=== PATIENT | male | born 1970 | race Caucasian/White ===

== ENCOUNTER 2021-06-29 20:23 | Observation (INO) | payer OTHER, SELFPAY ==
[2021-06-29] VITALS (7 sets, daily range): BP systolic 129–167; BP diastolic 73–102; PULSE 71–90; RESP 20; TEMP 36.5–36.7; O2SAT 95–100; BMI 26.3; BMI 24.9
--- NOTE | 2021-06-29 20:21 | ECG_ITS ---
APPROVED REPORT Exam: Resting ECG HR:90 bpm ECG Measurements Heart Rate 90 AXES MA 166 P 37 QRSd 78 QRS -2 QT 358 T 43 QTc 437 Conclusion Normal sinus rhythm Normal ECG Electronically signed by : Noble Chowdhury MD 06/30/2021 09:39:17
--- NOTE | 2021-06-29 20:31 | XR_ITS ---
PROCEDURE INFORMATION: Exam: XR Chest Exam date and time: 06/29/21 08:31 PM Age: 51 years old Clinical indication: Chest pressure; Patient HX: Chest pain; Additional info: Cp TECHNIQUE: Imaging protocol: XR of the chest. Views: 2 views. COMPARISON: No relevant prior studies available. FINDINGS: Lungs: Unremarkable. No consolidation. Pleural spaces: Unremarkable. No pleural effusion. No pneumothorax. Heart/Mediastinum: Unremarkable. No cardiomegaly. Bones/joints: Unremarkable. IMPRESSION: No acute findings.
[2021-06-29 20:43] LABS: Basophils # 0.1 K/mm3 (0-0.2); Basophils % 0.9 % (0.1-2.0); Eosinophils # 0.1 K/mm3 (0.0-0.4); Eosinophils % 0.9 % (0.1-12.0); Hematocrit 48.6 % (42.0-52.0); Hemoglobin 16.6 g/dL (14.1-18.0); Lymphocytes # 2.1 K/mm3 (0.7-4.5); Lymphocytes % 21.4 % (10-50); Mean Corpuscular HGB Conc 34.3 g/dL (31.8-35.4); Mean Corpuscular Hemoglobin 30.7 pg (27.0-31.2); Mean Corpuscular Volume 89.5 fl (80-94); Mean Platelet Volume 7.3 fl (7.4-10.4); Monocytes # 0.5 K/mm3 (0.1-1.0); Monocytes % 5.3 % (1.7-9.3); Neutrophils # 6.9 K/mm3 (1.8-7.8); Neutrophils % 71.5 % (37.0-80.0); Platelet Count 227 K/mm3 (142-424); Red Blood Count 5.43 M/mm3 (4.60-6.20); Red Cell Distribution Width 13.2 % (11.5-17.5); White Blood Count 9.6 K/mm3 (4.8-10.8)
--- NOTE | 2021-06-29 20:52 | HMH.EDCP ---
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 The time I documented below is in addition to time spent performing reported procedures but includes the following listed in this critical care notation. Medical Decision Making - Medical Records Medical records reviewed: Yes: I reviewed the patient's medical records. - Rodolfo Inquiry Pt receiving controlled substance: No Vital Signs: 06/29/21 20:24 06/29/21 20:29 06/29/21 21:00 Temperature 98.1 F Temperature Source Oral Pulse Rate 85 78 Pulse Rate [Right] 90 Respiratory Rate 20 Blood Pressure 135/87 129/73 Blood Pressure [Right Arm] 167/102 H Blood Pressure Mean 96 86 Blood Pressure Mean [Right Arm] 123 02 Sat by Pulse Oximetry 96 95 95 06/29/21 22:00 06/29/21 22:30 Temperature Temperature Source Pulse Rate 71 79 Pulse Rate [Right] Respiratory Rate Blood Pressure 134/82 150/89 H Blood Pressure [Right Arm] Blood Pressure Mean 96 109 Blood Pressure Mean [Right Arm] 02 Sat by Pulse Oximetry 99 100 - Lab Data Lab results reviewed: Yes: I reviewed the patient's lab results. Lab Results 06/29/21 20:00: Hemoglobin A1c 10.6 H 06/29/21 20:00: Acetone Level None detected 06/29/21 20:20: WBC 9.6, RBC 5.43, Hgb 16.6, Hct 48.6, MCV 89.5, MCH 30.7, MCHC 34.3, RDW 13.2, Plt Count 227, MPV 7.3 L, Neut % (Auto) 71.5, Lymph % (Auto) 21.4, [place] % (Auto) 5.3, Eos % (Auto) 0.9, Baso % (Auto) 0.9, Neut # (Auto) 6.9, Lymph # (Auto) 2.1, [place] # (Auto) 0.5, Eos # (Auto) 0.1, Baso # (Auto) 0.1, ESR 16 06/29/21 20:20: Sodium 140, Potassium 3.9, Chloride 103, Carbon Dioxide 28, Anion Gap 12.9, BUN 19, Creatinine 0.80, Estimated Creat Clear 144, Estimated GFR 102, Est GFR ( Amer) 123, Glucose 307 H, Calcium 9.2, Total Bilirubin 0.7, AST 25, ALT 30, Alkaline Phosphatase 142 H, Troponin I < 0.01, C-Reactive Protein 3.3, Total Protein 7.6, Albumin 4.3, Globulin 3.3 H, Albumin/Globulin Ratio 1.3, Procalcitonin 0.075 Result diagrams: 06/29/21 20:20 06/29/21 20:20 Orders (Tests/Meds): ED MEDICATIONS Generic Name Dose Route Start Last Admin Trade Name Freq PRN Reason Stop Dose Admin Sodium Chloride 1,000 mls @ 999 mls/hr 06/29/21 20:45 06/29/21 20:36 Sod Chlor 0.9% 1000ml Bag IV 06/29/21 21:45 999 mls/hr .Q1H1M TODD Administration Nitroglycerin 0.4 mg 06/29/21 20:32 06/29/21 20:36 Nitroglycerin 0.4mg Sl Tablet SL 07/29/21 20:31 0.4 mg Q5MINP PRN Administration Chest Pain Discontinued Medications Generic Name Dose Route Start Last Admin Trade Name Freq PRN Reason Stop Dose Admin Aspirin 324 mg 06/29/21 20:32 06/29/21 20:36 Aspirin 81mg Chewable Tablet PO 06/29/21 20:33 324 mg ONCE ONE Administration Nitroglycerin 1 gm 06/29/21 22:36 06/29/21 22:37 Nitroglycerin 1 Gm Ointment TD 06/29/21 22:37 1 gm ONCE ONE Administration ORDERS Category Date Time Status Rapid PCR Covid and Flu A/B Stat Lab 06/29/21 22:30 Received Troponin I Q3H Lab 06/29/21 23:45 Ordered Troponin I Q3H Lab 06/30/21 02:45 Ordered - Radiology Data #1 Image(s): Chest Image Reviewed: Yes I have reviewed radiologist's interpretation Preliminary Findings: Normal/NAD - ECG D
[2021-06-29 21:01] LABS: Alanine Aminotransferase 30 U/L (12-78); Albumin Level 4.3 g/dl (3.5-5.0); Albumin/Globulin Ratio 1.3 (1.1-1.8); Alkaline Phosphatase 142 U/L (38-126); Anion Gap 12.9 mEq/L (5-15); Aspartate Amino Transferase 25 U/L (17-59); Bilirubin,Total 0.7 mg/dl (0.2-1.3); Blood Urea Nitrogen 19 mg/dl (9-20); Calcium 9.2 mg/dl (8.4-10.2); Carbon Dioxide 28 mmol/L (22.0-30.0); Chloride 103 mmol/L (98-107); Creatinine Clearance Estimated 144 mL/min (50-200); Estimated Glomerular Filt Rate 102 ml/min (>60); GFR (African American) 123 ML/MIN (>60); Globulin 3.3 g/dL (1.3-3.2); Glucose 307 mg/dl (74-100); Potassium 3.9 mmoL/L (3.5-5.1); Sodium 140 mmol/L (136-145); Total Protein,Serum 7.6 g/dl (6.3-8.2)
[2021-06-29 21:06] LABS: C-Reactive Protein 3.3 mg/L (0-4)
[2021-06-29 21:19] LABS: Erythrocyte Sedimentation Rate 16 mm/hr (0-20); Procalcitonin 0.075 ng/mL (0.0-2.0); Troponin I < 0.01 ng/ml (0.00-0.034)
[2021-06-29 21:26] LABS: Acetone, Serum (Rapid) None Detected (None Detect)
--- NOTE | 2021-06-29 21:27 | PC.NURSE ---
Pt to x-ray
[2021-06-29 21:33] LABS: Hemoglobin A1C 10.6 % (4.0-6.0)
--- NOTE | 2021-06-29 21:34 | PC.NURSE ---
Pt returned from X-ray
[2021-06-29 22:39] LABS: Coronavirus 19, PCR Not Detected (NotDetected); Influenza A, PCR Not Detected (NotDetected); Influenza B, PCR Not Detected (NotDetected)
--- NOTE | 2021-06-29 22:54 | PC.NURSE ---
contacted [facility] in [place] to try obtained medical records
--- NOTE | 2021-06-29 23:20 | PC.NURSE ---
patient up to floor via wheelchair
[2021-06-29 23:53] LABS: Troponin I < 0.01 ng/ml (0.00-0.034)
[2021-06-30] VITALS (9 sets, daily range): BP systolic 107–122; BP diastolic 55–75; PULSE 59–72; RESP 16–20; TEMP 36.6–36.9; O2SAT 95–98; BMI 24.9
[2021-06-30 03:06] LABS: Troponin I < 0.01 ng/ml (0.00-0.034)
--- NOTE | 2021-06-30 03:15 | PC.NURSE ---
A&OX4. TOLERATING RA WELL. PT HAS HAD NO C/O PAIN, SOA, SINCE ARRIVAL TO FLOOR. PT UP INDEPENDENTLY IN ROOM. HAS A GREAT APPETITE. NSR ON TELE. VSS WILL CONTINUE TO MONITOR.
[2021-06-30 05:10] LABS: POC Glucose,Bedside 191 (70-110)
[2021-06-30 06:07] LABS: Eosinophils # 0.1 K/mm3 (0.0-0.4); Monocytes # 0.5 K/mm3 (0.1-1.0); Red Cell Distribution Width 13.1 % (11.5-17.5)
[2021-06-30 06:17] LABS: Basophils # 0.1 K/mm3 (0-0.2); Basophils % 0.6 % (0.1-2.0); Chloride 109 mmol/L (98-107); Eosinophils % 1.5 % (0.1-12.0); Hematocrit 40.6 % (42.0-52.0); Lymphocytes % 37.3 % (10-50); Mean Corpuscular HGB Conc 34.1 g/dL (31.8-35.4); Mean Corpuscular Hemoglobin 30.6 pg (27.0-31.2); Mean Corpuscular Volume 89.7 fl (80-94); Mean Platelet Volume 7.9 fl (7.4-10.4); Monocytes % 6.7 % (1.7-9.3); Neutrophils # 4.3 K/mm3 (1.8-7.8); Neutrophils % 53.9 % (37.0-80.0); Platelet Count 188 K/mm3 (142-424); Red Blood Count 4.52 M/mm3 (4.60-6.20)
[2021-06-30 06:18] LABS: Potassium 3.6 mmoL/L (3.5-5.1); Sodium 139 mmol/L (136-145)
[2021-06-30 06:20] LABS: Blood Urea Nitrogen 17 mg/dl (9-20); Creatinine Clearance Estimated 181 mL/min (50-200); Estimated Glomerular Filt Rate 142 ml/min (>60); GFR (African American) 172 ML/MIN (>60)
[2021-06-30 06:21] LABS: Anion Gap 8.6 mEq/L (5-15); Calcium 8.2 mg/dl (8.4-10.2); Carbon Dioxide 25 mmol/L (22.0-30.0); Chol/HDL Ratio 6.1 (1-3.5); Cholesterol 177 mg/dl (140-200); Glucose 203 mg/dl (74-100); HDL Cholesterol 29 mg/dl (40-60); Magnesium 1.7 mg/dl (1.6-2.3); Triglycerides 147 mg/dl (30-150); VLDL Cholesterol 29 mg/dL (0-40)
[2021-06-30 06:32] LABS: Direct LDL Cholesterol 119.65 mg/dL (100-129)
[2021-06-30 06:46] LABS: Hemoglobin 13.8 g/dL (14.1-18.0)
--- NOTE | 2021-06-30 08:08 | P.CONPHA_ITS ---
[facility] Pharmacy VTE Monitoring - Patient Demographics Admission date: 06/29/21 Report Date: 06/30/21 Time: 08:08 Allergies/Adverse Reactions: Patient Allergies Penicillins Allergy (Verified 06/29/21 20:31) Height: 1.88 m Weight: 87.997 kg Patient Problems: Current Active Problems Chest pain (Acute) Diabetes mellitus (Acute) Tobacco use (Acute) - VTE Risk Labs: VTE Related Lab Results Hgb 13.8 g/dL (14.1-18.0) L D 06/30/21 05:06 Hct 40.6 % (42.0-52.0) L 06/30/21 05:06 Plt Count 188 K/mm3 (142-424) 06/30/21 05:06 BUN 17 mg/dl (9-20) 06/30/21 05:06 Creatinine 0.60 mg/dl (0.66-1.25) L D 06/30/21 05:06 Estimated Creat Clear 181 mL/min (50-200) 06/30/21 05:06 - Prophylaxis VTE Prophylaxis Ordered?: Yes Types of VTE Prophylaxis: TEDS Knee High Location of Applied Device: Bilateral Lower Extremeties
--- NOTE | 2021-06-30 08:54 | HMH.HP ---
*Admission Date: 06/29/21 *Chief complaint: Chest pain *History of present illness: 51 Y.O. wm admitted with mild chest pain which started yesterday. Pain was nonexertional. It bothered him enough to come the emergency room last night. He was admitted for further evaluation. He has no prior history of cardiac disease. He does not have a family history of cardiac disease. His mother of cancer his father of unknown causes. Patient is a longtime smoker smoking a pack cigarettes a day. During the time he was having chest pain he did not experience nausea or vomiting or diaphoresis. He is not short of breath. This morning he is having some recurrent discomfort in the left chest while he is lying in bed. He has eaten breakfast. He denies any GI problems. He has no history of gallbladder disease or ulcer disease. [facility] History Medical History: Reports:: Diabetes Mellitus Type 2 *Have you ever received a pneumonia vaccine?: No *Have you received a flu vaccine this season?: No - *Social History Smoking Status: Current every day smoker Tobacco Type: cigarettes # Packs/Day (cigarettes): 1 Alcohol Intake: never *Occupational Status:: unemployed *Travel in the last 8 weeks: None Family Hx:: Cancer Review of Systems - Constitutional Denies body ache(s), Denies chills - Eyes Denies change in vision - ENT Denies abnormal hearing, Denies change in voice - *Cardiovascular Reports chest pain, Reports chest pain at rest, Denies chest pain with activity, Denies shortness of breath when lying down, Denies rapid, pounding, or irregular heartbeat - *Respiratory Denies change in phlegm color, Denies chest congestion, Denies cough - *Gastrointestinal Denies abdominal pain, Denies belching, Denies bloating, Denies change in bowel habits - *Genitourinary Denies difficulty urinating - *Musculoskeletal Denies joint pain - Integumentary/Breasts Denies bleeding lesions - *Neurologic Denies abnormal movements, Denies dizziness, Denies localized weakness, Denies seizure-like activity - Psychiatric Denies abnormal sleep pattern - Endocrine Denies cold intolerance, Denies excessive sweating - Hematologic/Lymphatic Denies easy bleeding - Allergic/Immunologic Denies GI upset with certain foods Meds Home Medications Medication Instructions Recorded Confirmed Type glipiZIDE [Glucotrol 5mg tablet] 5 mg PO DAILY 06/29/21 06/29/21 History Allergies Allergy/AdvReac Type Severity Reaction Status Date / Time Penicillins Allergy Verified 06/29/21 20:31 Exam Vital signs and Labs for Last 24 Hours: Temp Pulse Resp BP Pulse Ox 97.9 F 61 20 116/59 L 95 06/30/21 04:16 06/30/21 04:16 06/30/21 04:16 06/30/21 04:16 06/30/21 04:16 Laboratory Results - last 24 hr 06/29/21 20:00: Hemoglobin A1c 10.6 H 06/29/21 20:00: Acetone Level None detected 06/29/21 20:20: WBC 9.6, RBC 5.43, Hgb 16.6, Hct 48.6, MCV 89.5, MCH 30.7, MCHC 34.3, RDW 13.2, Plt Count 227, MPV 7.3 L, Neut % (Auto) 71.5, Lymph % (Auto) 21.4, [place] % (Auto) 5.3, Eos % (Auto) 0.9, Baso % (Auto) 0.9, Neut # (Auto) 6.9, Lymph # (Auto) 2.1, [place] # (Auto) 0.5, Eos # (Auto) 0.1, Baso # (Auto) 0.1, ESR 16 06/29/21 20:20: Sodium 140, Potassium 3.9, Chloride 103, Carbon Dioxide 28, Anion Gap 12.9, BUN 19, Creatinine 0.80, Estimated Creat Clear 144, Estimated GFR 102, Est GFR ( Amer) 123, Glucose 307 H, Calcium 9.2, Total Bilirubin 0.7, AST 25, ALT 30, Alkaline Phosphatase 142 H, Troponin I < 0.01, C-Reactive Protein 3.3, Total Protein 7.6, Albumin 4.3, Globulin 3.3 H, Albumin/Globulin Ratio 1.3, Procalcitonin 0.075 06/29/21 22:30: SARS-CoV-2 (PCR) Not detected, Influenza A Untype (PCR) Not detected, Influenza Type B (PCR) Not detected 06/29/21 23:15: Troponin I < 0.01 06/30/21 02:38: Troponin I < 0.01 06/30/21 05:03: POC Glucose 191 H 06/30/21 05:06: WBC 8.0, RBC 4.52 L, Hgb 13.8 L D, Hct 40.6 L, MCV 89.7, MCH 30.6, MCHC 34.1, RDW 13.1, Plt Coun
--- NOTE | 2021-06-30 10:40 | HMH.PHAINT ---
MEDICATION RECONCILIATION COMPLETED ON PATIENT BY CALLING [facility]. -FRANCI RIVERA, PHARMD
[2021-06-30 12:33] LABS: POC Glucose,Bedside 222 (70-110)
[2021-06-30 15:27] LABS: Hemoglobin A1C 10.2 % (4.0-6.0)
[2021-06-30 16:38] LABS: POC Glucose,Bedside 178 (70-110)
[2021-06-30 22:10] LABS: POC Glucose,Bedside 192 (70-110)
[2021-07-01] VITALS (7 sets, daily range): BP systolic 119–146; BP diastolic 65–85; PULSE 56–72; RESP 16–22; TEMP 36.2–36.9; O2SAT 96–99; BMI 26.2
--- NOTE | 2021-07-01 03:33 | PC.NURSE ---
No acute changes overnight. A&O. No c/o of pain or discomfort. On room air, lungs CTA. NSR on tele. IV patent. VSS, call light in reach, no concerns at this time.
--- NOTE | 2021-07-01 09:41 | P.PN_ITS ---
Internal Medicine - PN: Subj *Date: 07/01/21 *Time: 09:41 Interval history: He is doing just fine. He is comfortable. He does not have significant chest pain though he does admit some discomfort in the chest area. He is tolerating the nitroglycerin. His blood pressure has improved with the carvedilol. Exam Vital signs and Labs for Last 24 Hours: Temp Pulse Resp BP Pulse Ox 98.0 F 60 20 125/65 99 07/01/21 08:00 07/01/21 08:00 07/01/21 08:00 07/01/21 08:00 07/01/21 08:00 Laboratory Results - last 24 hr 06/30/21 05:06: Hemoglobin A1c 10.2 H 06/30/21 12:11: POC Glucose 222 H 06/30/21 15:59: POC Glucose 178 H 06/30/21 21:57: POC Glucose 192 H I & O for Last 24 hours: Intake & Output 06/28/21 06/29/21 06/30/21 07/01/21 11:59 11:59 11:59 11:59 Intake Total 1340 / 1340 1440 / 1440 Output Total 325 / 325 600 / 600 Balance 1015 / 1015 840 / 840 Weight 194 lb 204 lb 9 oz - Constitutional no acute distress - *Routine HEENT Exam Eye: Present: PERRL ENT: Present: mucous membranes moist - *Routine Neck Exam Absent: JVD - Routine Chest/Breast/Axilla Exam Chest wall: Absent: tenderness - *Routine Respiratory Exam Present: decreased breath sounds, rales (Few bibasilar) - *Routine Cardiovascular Exam Present: RRR - *Routine Abdominal Exam Present: soft, normoactive bowel sounds. Absent: tenderness - *Routine Extremities Exam Absent: edema - *Routine Skin Exam Present: intact, warm. 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 N.p.o. after midnight pending cardiology evaluation. Lab work in the morning.
--- NOTE | 2021-07-01 15:47 | PC.NURSE ---
Pt has done well this shift, pt has had no c/o chest pain this shift. Pt has refused nitro administration this shift. Pt has ambulated in the hallway multiple times this shift w/ satisfactory gait and balance. Lung sounds CTA. No other acute changes or complaints at this time, will continue to monitor.
[2021-07-01 22:53] LABS: POC Glucose,Bedside 294 (70-110)
[2021-07-02] VITALS (8 sets, daily range): BP systolic 114–136; BP diastolic 63–76; PULSE 50–70; RESP 15–18; TEMP 36.4–36.9; O2SAT 93–100; BMI 25.9; BMI 26.0
[2021-07-02 01:44] LABS: POC Glucose,Bedside 217 (70-110)
--- NOTE | 2021-07-02 04:58 | PC.NURSE ---
Pt. has not c/o soa, cp, pain, n/v/d or dizziness this shift. Sinus solange and nsr on concrete smoother.
[2021-07-02 05:59] LABS: POC Glucose,Bedside 220 (70-110)
[2021-07-02 07:37] LABS: Basophils # 0.1 K/mm3 (0-0.2); Basophils % 0.7 % (0.1-2.0); Eosinophils # 0.1 K/mm3 (0.0-0.4); Eosinophils % 1.2 % (0.1-12.0); Hematocrit 42.1 % (42.0-52.0); Hemoglobin 14.3 g/dL (14.1-18.0); Lymphocytes # 2.4 K/mm3 (0.7-4.5); Lymphocytes % 31.5 % (10-50); Mean Corpuscular HGB Conc 33.9 g/dL (31.8-35.4); Mean Corpuscular Hemoglobin 31.3 pg (27.0-31.2); Mean Corpuscular Volume 92.5 fl (80-94); Mean Platelet Volume 8.2 fl (7.4-10.4); Monocytes # 0.5 K/mm3 (0.1-1.0); Monocytes % 6.1 % (1.7-9.3); Neutrophils # 4.6 K/mm3 (1.8-7.8); Neutrophils % 60.5 % (37.0-80.0); Platelet Count 191 K/mm3 (142-424); Red Blood Count 4.55 M/mm3 (4.60-6.20); Red Cell Distribution Width 12.9 % (11.5-17.5); White Blood Count 7.7 K/mm3 (4.8-10.8)
[2021-07-02 07:38] LABS: Chloride 108 mmol/L (98-107); Potassium 3.9 mmoL/L (3.5-5.1); Sodium 136 mmol/L (136-145)
[2021-07-02 07:41] LABS: Anion Gap 5.9 mEq/L (5-15); Blood Urea Nitrogen 15 mg/dl (9-20); Calcium 8.3 mg/dl (8.4-10.2); Carbon Dioxide 26 mmol/L (22.0-30.0); Creatinine Clearance Estimated 189 mL/min (50-200); Estimated Glomerular Filt Rate 142 ml/min (>60); GFR (African American) 172 ML/MIN (>60); Glucose 204 mg/dl (74-100)
--- NOTE | 2021-07-02 08:10 | P.PN_ITS ---
Internal Medicine - PN: Subj *Date: 07/02/21 *Time: 08:10 Interval history: Patient states he slept okay. He does have periodic anterior across the lower chest discomfort. He denies shortness of breath. He is eating without problems. He ambulates without discomfort. He is actually ambulated in the garcia. He is voiding QS and bowels have moved. Lab data this a.m. shows sodium of 136 potassium of 3.9. Renal function is normal. CBC with a white blood cell count of 7700 and a hemoglobin of 14.3 and hematocrit 42.1. Exam Vital signs and Labs for Last 24 Hours: Temp Pulse Resp BP Pulse Ox 97.5 F L 60 16 124/63 93 L 07/02/21 03:40 07/02/21 04:00 07/02/21 03:40 07/02/21 03:40 07/02/21 03:40 Laboratory Results - last 24 hr 07/01/21 17:00: POC Glucose 217 H 07/01/21 21:00: POC Glucose 294 H 07/02/21 05:35: POC Glucose 220 H 07/02/21 07:07: WBC 7.7, RBC 4.55 L, Hgb 14.3, Hct 42.1, MCV 92.5, MCH 31.3 H, MCHC 33.9, RDW 12.9, Plt Count 191, MPV 8.2, Neut % (Auto) 60.5, Lymph % (Auto) 31.5, [place] % (Auto) 6.1, Eos % (Auto) 1.2, Baso % (Auto) 0.7, Neut # (Auto) 4.6, Lymph # (Auto) 2.4, [place] # (Auto) 0.5, Eos # (Auto) 0.1, Baso # (Auto) 0.1 07/02/21 07:07: Sodium 136, Potassium 3.9, Chloride 108 H, Carbon Dioxide 26, Anion Gap 5.9, BUN 15, Creatinine 0.60 L, Estimated Creat Clear 189, Estimated GFR 142, Est GFR ( Amer) 172, Glucose 204 H, Calcium 8.3 L I & O for Last 24 hours: Intake & Output 06/29/21 06/30/21 07/01/21 07/02/21 11:59 11:59 11:59 11:59 Intake Total 1340 / 1340 1440 / 1440 720 / 720 Output Total 325 / 325 600 / 600 Balance 1015 / 1015 840 / 840 720 / 720 Weight 194 lb 204 lb 9 oz 202 lb 3 oz - Constitutional no acute distress - *Routine Respiratory Exam Present: CTA bilaterally (Anteriorly and posteriorly) - *Routine Cardiovascular Exam Present: RRR - *Routine Abdominal Exam Present: soft, normoactive bowel sounds. 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
--- NOTE | 2021-07-02 09:40 | HMH.CNCARD ---
History of Present Illness Consult date: 07/02/21 Requesting physician: Jeanne Lizama Consult reason: chest pain Chief complaint: chest pain Additional Medical History:: 1. Diabetes mellitus, treated for about 3 years A. Hemoglobin A1c 10.6, 06/2021 2. Tobacco use 1 pack/day for greater than 30 years 3. History of left heart catheterization in 2019 at in [place], [place] with reported less than 20% stenosis. No need for any intervention. Per patient. 4. Father at age 61 from some sort of heart related illness 5. Hypertension, newly diagnosed this admission 06/2021 6. History of torn rotator cuff of the left shoulder after falling out of a tree History of present illness: 51-year-old white male with history of diabetes and tobacco use presented to the emergency department due to sticking type chest pain in the lower chest, upper abdominal areas with associated flushing sensation. Symptoms occurred at rest without nausea, vomiting or diaphoresis. No acute shortness of breath was noted. Patient came to the emergency department for further evaluation. He was subsequently admitted for observation. Troponins have returned normal x3 and EKG showed no acute ST segment changes. He was in sinus rhythm. Patient was noted to be hypertensive on admission and was started on carvedilol with improvement in blood pressure. Due to recurrent chest discomfort he was also started on nitroglycerin paste which he states has helped with the discomfort. He reports being hospitalized in [place] last year for similar chest discomfort at which time he underwent left heart catheterization with only mild coronary artery disease noted and no need for intervention. He relates being on Prilosec for 30 days with resolution of symptoms at that time. He does drink several sodas per day. 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 [facility] History Medical History: Reports:: Diabetes Mellitus Type 2 *Have you ever received a pneumonia vaccine?: No *Have you received a flu vaccine this season?: No - *Social History Smoking Status: Current every day smoker Tobacco Type: cigarettes # Packs/Day (cigarettes): 1 Alcohol Intake: never *Occupational Status:: unemployed *Travel in the last 8 weeks: None Family Hx:: Cancer Meds Home Medications Medication Instructions Recorded Confirmed Type glipiZIDE [Glucotrol 5mg tablet] 5 mg PO DAILY 06/29/21 06/29/21 History Allergies Allergy/AdvReac Type Severity Reaction Status Date / Time Penicillins Allergy Verified 06/29/21 20:31 Exam Vital signs and Labs for Last 24 Hours: Temp Pulse Resp BP Pulse Ox 97.9 F 66 16 136/75 98 07/02/21 08:00 07/02/21 08:00 07/02/21 08:00 07/02/21 08:00 07/02/21 08:00 Laboratory Results - last 24 hr 07/01/21 17:00: POC Glucose 217 H 07/01/21 21:00: POC Glucose 294 H 07/02/21 05:35: POC Glucose 220 H 07/02/21 07:07: WBC 7.7, RBC 4.55 L, Hgb 14.3, Hct 42.1, MCV 92.5, MCH 31.3 H, MCHC 33.9, RDW 12.9, Plt Count 191, MPV 8.2, Neut % (Auto) 60.5, Lymph % (Auto) 31.5, [place] % (Auto) 6.1, Eos % (Auto) 1.2, Baso % (Auto) 0.7, Neut # (Auto) 4.6, Lymph # (Auto) 2.4, [place] # (Auto) 0.5, Eos # (Auto) 0.1, Baso # (Auto) 0.1 07/02/21 07:07: Sodium 136, Potassium 3.9, Chloride 108 H, Carbon Dioxide 26, Anion Gap 5.9, BUN 15, Creatinine 0.60 L, Estimated Creat Clear 189, Estimated GFR 142, Est GFR ( Amer) 172, Glucose 204 H, Calcium 8.3 L I & O for Last 24 hours: Intake & Output 06/29/21 06/30/21 07/01/21 07/02/21 11:59 11:59 11:59 11:59 Intake Total 1340 / 1340 1440 / 1440 720 / 720 Output Total 325 / 325 600 / 600 Balance 1015 / 1015 840 / 840 720 / 720 Weight 194 lb 204 lb 9 oz 202 lb 3 oz - Constitutional no acute distress - *Routine HEENT Exam Head: Present: normocephalic Eye: Present: EOMI, PERRL ENT: Present: mucous membranes moist - *Routine Neck Exam Present: supple. Absent: lym
--- NOTE | 2021-07-02 10:21 | NM_ITS ---
APPROVED REPORT Exam: Nuclear Stress Test Indication: chest pain Patient Location: Outpatient Stress Tech: Viviana Gonzalez [place] Tech:EPI Jose, RT (R)(N) Ht: 6 ft 2 in Wt: 194 lbs HR: 74 bpm BP: 142/85 mmHg BSA: 2.15 m2 BMI: 24.9 History: chest pain Procedure: Patient received a 0.4 mg of intravenous Lexiscan, resting heart rate 74 bpm, resting blood pressure 142/85 mmHg, with Lexiscan maximum heart rate achived was 140 bpm which is 85 % of the maximum predicted heart rate and blood pressure was 150/94 mmHg. With Lexiscan, patient denied any complaint of chest pain. Cardiac Stress and Resting SPECT Images: Cardiac Stress and Resting SPECT images were obtained using technetium 99m Myoview 32.2 mCi stress and 10.83 mCi at rest. EF is low at 43 % with apical and anterior hypokiesia No fixed or reversible defects Conclusion: EF is low at 43 % with apical and anterior hypokiesia No fixed or reversible defects Electronically signed by : Familia Howe MD 07/02/2021 16:05:24
--- NOTE | 2021-07-02 10:21 | CA_ITS ---
APPROVED REPORT Exam: Exercise Treadmill Technologist: Viviana Gonzalez, Ht: 5 ft 10 in Wt: 201 lbs BSA: 2.09 m2 HR: 70 bpm BP: 142/87 mmHg Medical History Medications: Aspirin,,,,, Glipizide,,,,, Stress Test Details Test: David HR Resting HR: 74 bpm Max Heart Rate (APMHR): 169.558528 bpm Max HR Achieved: 140 bpm Target HR (85% APMHR): 143.674417 bpm % of APMHR: 82.84 Recovery HR: 84 bpm BP Resting BP: 142/85 mmHg Max BP: 150/94 mmHg Recovery BP: 160.0/82.0 mmHg ECG Resting ECG: NSR Clinical Reason for Termination: Dyspnea Leg Pain Exercise duration: 07:53 min Highest Stage Achieved: Exercise capacity: 10.1 METs Stress ECG Conclusion Exercised 7:53 mins Max HR: 140 % of PM: 97 Max BP: 150/94 METs: 10.1 Test stopped due to: leg pain, SOA Symptoms: No CP Arrhythmias/Ectopy: Rare PVC's ST-T Changes: <1.[address] Segment changes. Conclusion: Negative stress test. Did not reach target HR but negative test. Test Summary RECOVERY 01:00 0.0 0.0 110 . . . Stop exercise at 07:53 REST . . . . . . . Standing REST 08:18 0.0 1.2 74 . 142/ 85 . . Stage 1 01:00 10.0 1.7 89 . . . . Stage 1 02:00 10.0 1.7 90 . 140/ 84 . . Stage 1 03:00 10.0 1.7 93 . 140/ 84 . . Stage 2 01:00 12.0 2.5 101 . . . . Stage 2 02:00 12.0 2.5 108 . . . . Stage 2 03:00 12.0 2.5 113 . 150/ 94 . . Stage 3 01:00 14.0 3.4 128 . . . . Stage 3 01:53 14.0 3.4 138 . . . Stop exercise at 07:53 RECOVERY 01:00 0.0 0.0 110 . . . . RECOVERY 02:00 0.0 0.0 87 . . . . RECOVERY 03:00 0.0 0.0 92 . . . . RECOVERY 04:00 0.0 0.0 91 . . . . RECOVERY 05:00 0.0 0.0 85 . . . . RECOVERY 06:00 0.0 0.0 82 . . . . RECOVERY 06:29 0.0 0.0 82 . . . . Electronically signed by : Audie Graham MD 07/02/2021 18:09:34
--- NOTE | 2021-07-02 10:23 | CA_ITS ---
APPROVED REPORT EXAM: Comprehensive 2D, Doppler, and color-flow Echocardiogram Investment Counselor: Aliyah Jaramillo CRT Ht: 6 ft 3 in Wt: 202lbs BSA: 2.20 BP: 136/75 mmHg Indications: Chest Pain, Diabetes, CAD, Hyperlipidemia, Hypertension/HDD, Smoker 2D Dimensions LVOT 1.94 cm (M/F) 1.5-2.5 LA Volume 30.80 mL LA Volume Index 14.00 mL/m2 (M/F) 16-34 M-Mode Dimensions RVDd 3.14 cm (0.9-2.6) LA Diam 3.23 cm (1.9-4.0) LVDd 4.80 cm (3.5-5.7) Ao Diam 4.08 cm (2.0-3.7) LVDs 3.31 cm (3.5-5.7) IVSd 1.31 cm (0.6-1.1) PWd 1.03 cm (0.6-1.1) EF (Teich) 58.60% FS 31.00% EDV (Teich) 107.50 mL TAPSE 1.82 (<1.7) ESV (Teich) 44.50 mL LV Diastology E Decel Time 193.00 (160-240 msec) E/A Ratio 0.87 MED E' 6.80 (< 7 cm/sec) MED A' 6.20 cm/s E'/MED E' Ratio 8.03 (>14) LAT E' 9.50 (<10 cm/sec) LAT A' 9.90 cm/s E/LAT E' Ratio 5.75 (>14) Aortic Valve AO Peak GR. 5.60 mmHg Mitral Valve MV E Max Eric. 55.00 (40-130 cm/s) MV A Velocity 63.00 (40-130 cm/s) E/A Ratio 0.87 MV Decel. Time 193.00 (160-240 ms) MV PHT 57.00 ms Pulmonary Valve PV Peak Velocity 77.00 (50-150 cm/s) Tricuspid Valve TR P. Velocity 146.00 cm/s RAP Estimate 10.00 mmHg RVSP 18.50 mmHg Left Ventricle Left atrium normal size, left ventricle is normal size, there is no concentric left ventricular hypertrophy, visually estimated ejection fraction 55% with no regional wall motion abnormality, diastolic parameters are within normal range. Right Ventricle Right atrium and right ventricle are qualitatively normal size and contractility. Aortic Valve Aortic valve is grossly normal, there is no aortic stenosis or aortic insufficiency. Mitral Valve Mitral valve grossly normal, there is trace mitral regurgitation. Tricuspid Valve Tricuspid grossly normal, there is trace tricuspid regurgitation, tricuspid regurgitation jet velocity is inadequate for calculation of the right ventricular systolic pressure. Pulmonic Valve Pulmonic valve is poorly visualized. Great Vessels Aortic root is normal size. Pericardium No significant pericardial effusion noted. Conclusion 1. Normal left ventricular size, preserved left ventricular systolic function, visually estimated ejection fraction 55% with no regional wall motion abnormality, diastolic parameters are within normal range. 2. Trace mitral and tricuspid regurgitation. 3. No significant pericardial effusion noted. Electronically signed by : Audie Graham MD 07/02/2021 19:12:54
[2021-07-02 12:58] LABS: POC Glucose,Bedside 111 (70-110)
[2021-07-02 20:46] LABS: POC Glucose,Bedside 293 (70-110)
[2021-07-03] VITALS: BP 114/64; PULSE 60; PULSE 61; RESP 16; TEMP 37; O2SAT 97
[2021-07-03 03:39] VITALS: BP 117/70; PULSE 74; RESP 16; TEMP 36.8; O2SAT 97
[2021-07-03 04:00] VITALS: PULSE 60
--- NOTE | 2021-07-03 04:00 | PC.NURSE ---
Patient is a&ox4. no complaints of pain. Patient has been pleasant this shift and voiced no concerns to RN. blood sugar was elevated and insulin sliding scale was administered. VSS.
[2021-07-03 04:53] LABS: POC Glucose,Bedside 341 (70-110)
--- NOTE | 2021-07-03 07:28 | HMH.PNCARD ---
Subjective Date: 07/03/21 Time: 07:28 Principal diagnosis: Chest pain Interval history: 51-year-old white male in bed in no acute distress. No complaints overnight. Chest discomfort has resolved. Stress test showed no evidence of ischemia or scar. Echocardiogram showed normal ejection fraction with no significant valvular heart disease. The ejection fraction on the stress test appears to be falsely low compared to the echocardiogram EF which is normal. Exam Vital signs and Labs for Last 24 Hours: Temp Pulse Resp BP Pulse Ox 98.3 F 60 16 117/70 97 07/03/21 03:39 07/03/21 04:00 07/03/21 03:39 07/03/21 03:39 07/03/21 03:39 Laboratory Results - last 24 hr 07/02/21 07:07: WBC 7.7, RBC 4.55 L, Hgb 14.3, Hct 42.1, MCV 92.5, MCH 31.3 H, MCHC 33.9, RDW 12.9, Plt Count 191, MPV 8.2, Neut % (Auto) 60.5, Lymph % (Auto) 31.5, Becker % (Auto) 6.1, Eos % (Auto) 1.2, Baso % (Auto) 0.7, Neut # (Auto) 4.6, Lymph # (Auto) 2.4, Becker # (Auto) 0.5, Eos # (Auto) 0.1, Baso # (Auto) 0.1 07/02/21 07:07: Sodium 136, Potassium 3.9, Chloride 108 H, Carbon Dioxide 26, Anion Gap 5.9, BUN 15, Creatinine 0.60 L, Estimated Creat Clear 189, Estimated GFR 142, Est GFR ( Amer) 172, Glucose 204 H, Calcium 8.3 L 07/02/21 11:48: POC Glucose 111 H 07/02/21 20:39: POC Glucose 293 H 07/03/21 04:46: POC Glucose 341 H* I & O for Last 24 hours: Intake & Output 06/30/21 07/01/21 07/02/21 07/03/21 11:59 11:59 11:59 11:59 Intake Total 1340 / 1340 1440 / 1440 720 / 720 Output Total 325 / 325 600 / 600 Balance 1015 / 1015 840 / 840 720 / 720 Weight 194 lb 204 lb 9 oz 202 lb 3 oz 202 lb 13.204 oz - Constitutional no acute distress - *Routine HEENT Exam Head: Present: normocephalic Eye: Present: EOMI, PERRL ENT: Present: mucous membranes moist - *Routine Neck Exam Present: supple. Absent: lymphadenopathy - *Routine Respiratory Exam Present: CTA bilaterally - *Routine Cardiovascular Exam Present: RRR - *Routine Abdominal Exam Present: soft, normoactive bowel sounds. Absent: tenderness - *Routine Extremities Exam Absent: cyanosis, clubbing, edema - *Routine Skin Exam Present: warm. Absent: rash - *Routine Neurological Exam Present: alert, oriented X3 Progress Note: A&P (1) Chest pain Status: Acute (2) Diabetes mellitus Status: Acute (3) Tobacco use Status: Acute (4) Hypertension Status: Acute Assessment and Plan for All Diagnoses:: Okay from cardiology standpoint for discharge home. Home medication recommendations Aspirin 81 mg daily Coreg 6.25 mg twice daily Atorvastatin 40 mg daily Pantoprazole 40 mg daily Nitroglycerin sublingual 0.4 mg as needed Follow-up in our office in 2 weeks.
[2021-07-03 08:00] VITALS: BP 131/67; PULSE 70; PULSE 79; RESP 18; TEMP 36.8; O2SAT 97
--- NOTE | 2021-07-03 08:25 | P.PN_ITS ---
Internal Medicine - PN: Subj *Date: 07/03/21 *Time: 08:25 Interval history: Patient is ready to go home. He denies any further chest pain or shortness of breath. He states he is eating without difficulties. He ambulates without problems. Exam Vital signs and Labs for Last 24 Hours: Temp Pulse Resp BP Pulse Ox 98.3 F 79 18 131/67 97 07/03/21 08:00 07/03/21 08:00 07/03/21 08:00 07/03/21 08:00 07/03/21 08:00 Laboratory Results - last 24 hr 07/02/21 11:48: POC Glucose 111 H 07/02/21 20:39: POC Glucose 293 H 07/03/21 04:46: POC Glucose 341 H* I & O for Last 24 hours: Intake & Output 06/30/21 07/01/21 07/02/21 07/03/21 11:59 11:59 11:59 11:59 Intake Total 1340 / 1340 1440 / 1440 720 / 720 480 / 480 Output Total 325 / 325 600 / 600 Balance 1015 / 1015 840 / 840 720 / 720 480 / 480 Weight 194 lb 204 lb 9 oz 202 lb 3 oz 202 lb 13.204 oz - Constitutional no acute distress - *Routine Respiratory Exam Present: CTA bilaterally (Anteriorly and posteriorly) - *Routine Cardiovascular Exam Present: RRR - *Routine Abdominal Exam Present: soft, normoactive bowel sounds. Absent: tenderness - *Routine Extremities Exam Absent: edema, calf tenderness - *Routine Neurological Exam Present: alert, oriented X3 Assessment and Plan (1) Chest pain Status: Acute Qualifiers: Chest pain type: precordial pain Qualified Code(s): R07.2 - Precordial pain Category: Medical Code(s): R07.9 - Chest pain, unspecified (2) Diabetes mellitus Status: Acute Qualifiers: Diabetes mellitus type: type 2 Diabetes mellitus usp insulin use: unspecified usp insulin use status Diabetes mellitus complication status: with other specified complication Qualified Code(s): E11.69 - Type 2 diabetes mellitus with other specified complication Category: Medical Code(s): E11.9 - Type 2 diabetes mellitus without c omplications (3) Tobacco use Status: Acute Category: Social Hx Code(s): Z72.0 - Tobacco use (4) Hypertension Status: Acute Category: Medical Code(s): I10 - Essential (primary) hypertension - Assessment and plan all Dx Assessment and Plan for all problems:: Patient has been seen by cardiology and cleared for discharge. Patient will also be seen by Dr. Lizama. Home medications will include aspirin 81 mg daily, Coreg 6.25 mg twice daily, atorvastatin 40 mg daily, Protonix 40 mg daily, and NTG 0.4 mg as needed. He will have a follow-up in the office of cardiology in 2 weeks..
--- NOTE | 2021-07-03 15:55 | HMH.DCSUM ---
General - General Admission date:: 06/29/21 Discharge date: 07/03/21 HPI HPI: 51 Y.O. wm admitted with mild chest pain which started yesterday. Pain was nonexertional. It bothered him enough to come the emergency room last night. He was admitted for further evaluation. He has no prior history of cardiac disease. He does not have a family history of cardiac disease. His mother of cancer his father of unknown causes. Patient is a longtime smoker smoking a pack cigarettes a day. During the time he was having chest pain he did not experience nausea or vomiting or diaphoresis. He is not short of breath. This morning he is having some recurrent discomfort in the left chest while he is lying in bed. He has eaten breakfast. He denies any GI problems. He has no history of gallbladder disease or ulcer disease. Hospital Course Hospital Course: The patient was started on Nitropaste due to his chest pain and mild blood pressure elevation. Pantoprazole was also added for possible gastrointestinal cause. His chest x-ray showed nothing acute. His blood pressure improved with carvedilol and he tolerated the nitroglycerin and had less chest pain. Cardiology was consulted and they recommended a stress test and an echo. The patient's echo showed a normal ejection fraction with no significant valvular disease. Ejection fraction on stress test appear to be falsely low compared to the echo EF which was normal. Stress test showed no evidence of ischemia. Cardiology felt the patient could be discharged home on aspirin, Coreg, atorvastatin, pantoprazole, and sublingual nitroglycerin. He will follow-up in their office in 2 weeks. Objective Vital signs: Temp Pulse Resp BP Pulse Ox 98.3 F 79 18 131/67 97 07/03/21 08:00 07/03/21 08:00 07/03/21 08:00 07/03/21 08:00 07/03/21 08:00 Narrative: - Constitutional no acute distress - *Routine HEENT Exam Head: Present: normocephalic Eye: Present: PERRL ENT: Present: mucous membranes moist - *Routine Neck Exam Absent: JVD - Routine Chest/Breast/Axilla Exam Chest wall: Absent: tenderness - *Routine Respiratory Exam Present: CTA bilaterally, rales (Few bibasilar) - *Routine Cardiovascular Exam Present: RRR. Absent: murmur, ectopic - *Routine Abdominal Exam Present: soft. Absent: normoactive bowel sounds (Hyperactive), tenderness, mass - *Routine Rectal Exam Rectal:: deferred - *Routine Genitalia Exam Genitalia:: deferred - *Routine Extremities Exam Absent: edema - Routine Back/Spine/Pelvis Exam Back/Spine: Absent: paraspinal tenderness - *Routine Skin Exam Present: intact - *Routine Neurological Exam Present: alert, oriented X3 Results Labs on day of discharge: Labs from last 24 hours 07/03/21 07/02/21 04:46 20:39 POC Glucose 341 H* 293 H DS: Diagnosis - Discharge Diagnosis (1) Chest pain Status: Acute (2) Diabetes mellitus Status: Acute (3) Tobacco use Status: Acute (4) Hypertension Status: Acute Discharge Plan - Patient Discharge Instructions ACTIVITY: Continue current activity DIET: advance to your usual diet Patient Instructions: Nicotine Addiction, DI for High Blood Pressure, DI for Chest Pain - Follow up Plan Follow up with: Germán Grider MD [Staff Physician] - 07/17/21 1:30 pm ProviderAnnelise MD [Primary Care Provider] - 1 week Disposition: Home, Self-Care Condition at discharge:: Improved Home Medications: Home Medications Medication Instructions Recorded Confirmed Type glipiZIDE [Glucotrol 5mg tablet] 5 mg PO DAILY 06/29/21 06/29/21 History Aspirin [Aspirin 81mg chewable 81 mg PO DAILY tab.chew 07/03/21 Rx tab] Atorvastatin Calcium [Lipitor 40mg 40 mg PO HS #30 tab 07/03/21 Rx Tablet*] Pantoprazole Sodium [Protonix 40mg 40 mg PO DAILY #30 tablet.dr 07/03/21 Rx tablet] carvediloL [Coreg 6.25mg 6.25 mg PO BID #60 tab
== END 2021-07-03 10:20 | disposition home or self-care (01) ==
LOC: ER 20:52 → 2ND 23:08
PROVIDERS: Admitting Provider Family Medicine; Emergency Provider Emergency Medicine; Visit Provider Family Medicine
DX: R07.9 Chest pain, unspecified (principal); F17.210 Nicotine dependence, cigarettes, uncomplicated; E11.9 Type 2 diabetes mellitus without complications; Z20.822 Contact with and (suspected) exposure to COVID-19; Z79.84 Long term (current) use of oral hypoglycemic drugs; Z79.899 Other long term (current) drug therapy
CPT/HCPCS: 36415; 71046; 78452; 80048; 80053; 80061; 82009; 82962; 83036; 83735; 84145; 84484; 85025; 85651; 86140; 93005; 93017; 93306; 96365; 99284; A9502; G0378; U0003

== ENCOUNTER 2022-09-27 00:39 | Emergency (ER) | payer MEDICAID, SELFPAY ==
[2022-09-27] VITALS (12 sets, daily range): BP systolic 105–149; BP diastolic 55–88; PULSE 68–108; RESP 16–20; TEMP 36.6–36.8; O2SAT 95–100; BMI 24.9
[2022-09-27 00:54] LABS: POC Glucose,Bedside 429 (70-110)
--- NOTE | 2022-09-27 00:58 | XR_ITS ---
PROCEDURE INFORMATION: Exam: XR Chest Exam date and time: 09/27/2022 1:18 AM Age: 52 years old Clinical indication: Other: Dizziness; Patient HX: PT buring propane heater, became dizzy; Additional info: Carbon mooxide TECHNIQUE: Imaging protocol: Radiologic exam of the chest. Views: 2 views. COMPARISON: CR XR CHEST 2V 06/29/2021 9:20 PM FINDINGS: Lungs: Unremarkable. No consolidation. Pleural spaces: Unremarkable. No pleural effusion. No pneumothorax. Heart/Mediastinum: Unremarkable. No cardiomegaly. Bones/joints: Asymmetric increased density over the right upper lobe is most likely prominent calcification at the 1st costochondral junction and is unchanged. Degenerative changes of the shoulders and spine. IMPRESSION: No evidence for acute cardiopulmonary process.
--- NOTE | 2022-09-27 01:04 | ECG_ITS ---
APPROVED REPORT Exam: Resting ECG HR:94 bpm ECG Measurements Heart Rate 94 AXES CA 175 P 74 QRSd 86 QRS 31 QT 346 T 61 QTc 398 Conclusion SINUS RHYTHM MARKED ST ELEVATION in multiple leads - early repolarization vs. pericarditis UNCONFIRMED REPORT Electronically signed by : Noble Chowdhury MD 09/28/2022 21:19:10
--- NOTE | 2022-09-27 01:08 | HMH.EDGENADL ---
Discharge Plan Disposition Patient Disposition: Home, Self-Care Prescriptions Prescriptions: New metformin 500 mg tablet extended release 24 hr 500 mg PO BID Qty: 60 0RF Referrals Follow up/Referrals: Germán Grider MD [Staff Physician] - See instructions Provider,MD Annelise [Primary Care Provider] - See instructions Clinical Impressions Clinical Impression: Hyperglycemia without ketosis, Diabetes mellitus, Tobacco use, Carbon monoxide poisoning Instructions Patient Instructions: DI for Carbon Monoxide Poisoning, DI for Hyperglycemia -- Adult Discharge ED Provider: Flash Gordon General Adult HPI General Chief complaint: Hyper/Hypoglycemia Stated complaint: light headed,diabetic-396,feels bad Time Seen by Provider: 09/27/22 01:08 Mode of Arrival: Ambulatory Source of Information: Patient, Spouse and Medical Record Limitations: No Limitations Description of Symptoms (Recalled from ER Triage Doc. by RN): pt states was using a propane heater in house and became disoriented, dizzy, and high fsbs, and unable to hear out of lt ear. History of Present Illness HPI narrative: possible exposure to carbon monoxide and felt dizzyness with macias - uses propane Onset (ago): hour(s) Location: head Severity: moderate Consistency: intermittent Associated symptoms: denies other symptoms Related Data Previous Rx's Medication Instructions Recorded metformin 500 mg tablet,extended 500 mg PO BID #60 tabs 09/27/22 release 24 hr Allergies Allergy/AdvReac Type Severity Reaction Status Date / Time Penicillins Allergy Verified 06/29/21 20:31 [facility] Social History Smoking Status: Current every day smoker tobacco type: cigarettes packs per day: 1 alcohol intake: never current occupational status: unemployed Travel in the last 8 weeks: None ROS Obtained: Yes All systems reviewed & no additional complaints except as documented Physical Exam General General appearance: alert Head Head exam: normocephalic Eye Eye exam: Present PERRL and EOMI ENT ENT exam: Present mucous membranes moist Neck Neck exam: Present trachea midline Respiratory Respiratory exam: Present other (rhonchi) Cardiovascular Cardiovascular exam: Present regular rate and systolic murmur Abdominal Exam Abdominal exam: Present soft Extremities Exam Extremities exam: Present full ROM Neurological Exam Neurological exam: Present alert, oriented X3, CN II-XII intact and other (gcs=15) Psychiatric Psychiatric exam: Present normal affect Skin Skin exam: Absent rash Medical Decision Making Medical Records Medical records reviewed: Yes I reviewed the patient's medical records. Rodolfo Inquiry Pt receiving controlled substance: No Vital Signs: 09/27/22 00:41 09/27/22 01:00 09/27/22 01:31 Temperature 97.8 F Temperature Source Oral Pulse Rate 101 H 89 Pulse Rate [Right] 108 H Respiratory Rate 16 Blood Pressure 125/73 118/74 Blood Pressure [Right Arm] 144/82 H Blood Pressure Mean 87 86 Blood Pressure Mean [Right Arm] 102 02 Sat by Pulse Oximetry 98 95 96 Oxygen Delivery Method Oxygen Flow Rate (LPM) 09/27/22 02:00 09/27/22 02:30 09/27/22 03:00 Temperature Temperature Source Pulse Rate 89 74 74 Pulse Rate [Right] Respiratory Rate Blood Pressure 105/59 L 107/59 L 106/55 L Blood Pressure [Right Arm] Blood Pressure Mean 74 Blood Pressure Mean [Right Arm] 02 Sat by Pulse Oximetry 97 99 99 Oxygen Delivery Method Non-Rebreather Non-Rebreather Oxygen Flow Rate (LPM) 15 15 09/27/22 03:30 09/27/22 04:01 Temperature Temperature Source Pulse Rate 68 97 H Pulse Rate [Right] Respiratory Rate Blood Pressure 111/55 L 145/78 H Blood Pressure [Right Arm] Blood Pressure Mean Blood Pressure Mean [Right Arm] 02 Sat by Pulse Oximetry 99 99 Oxygen Delivery Method Non-Rebreather Non-Rebreather Oxygen Flow Rate (LPM) 15 15 Lab Data Lab results reviewed: Cresencio
[2022-09-27 01:09] LABS: Basophils # 0.1 K/mm3 (0-0.2); Basophils % 0.4 % (0.1-2.0); Eosinophils % 0.3 % (0.1-12.0); Hemoglobin 15.6 g/dL (14.1-18.0); Lymphocytes # 0.9 K/mm3 (0.7-4.5); Lymphocytes % 7.4 % (10-50); Mean Corpuscular HGB Conc 32.4 g/dL (31.8-35.4); Mean Corpuscular Hemoglobin 31.3 pg (27.0-31.2); Mean Corpuscular Volume 96.4 fl (80-94); Mean Platelet Volume 8.1 fl (7.4-10.4); Monocytes # 0.3 K/mm3 (0.1-1.0); Monocytes % 2.9 % (1.7-9.3); Neutrophils # 10.3 K/mm3 (1.8-7.8); Platelet Count 224 K/mm3 (142-424); Red Blood Count 4.98 M/mm3 (4.60-6.20); White Blood Count 11.5 K/mm3 (4.8-10.8)
[2022-09-27 01:11] LABS: Chloride 99 mmol/L (98-107); Potassium 4.1 mmoL/L (3.5-5.1); Sodium 135 mmol/L (136-145)
[2022-09-27 01:13] LABS: MANUAL DIFFERENTIAL MANUAL DIFFERENTIAL (MANUAL DIFF)
[2022-09-27 01:14] LABS: Alanine Aminotransferase 27 U/L (12-78); Albumin/Globulin Ratio 1.5 (1.1-1.8); Alkaline Phosphatase 153 U/L (38-126); Anion Gap 13.1 mEq/L (5-15); Aspartate Amino Transferase 27 U/L (17-59); Bilirubin,Total 0.5 mg/dl (0.2-1.3); Blood Urea Nitrogen 22 mg/dl (9-20); Carbon Dioxide 27 mmol/L (22.0-30.0); Creatinine Clearance Estimated 154 mL/min (50-200); Estimated Glomerular Filt Rate 118 ml/min (>60); GFR (African American) 143 ML/MIN (>60); Globulin 2.7 g/dL (1.3-3.2); Total Protein,Serum 6.7 g/dl (6.3-8.2)
[2022-09-27 01:15] LABS: Calcium 9.6 mg/dl (8.4-10.2)
[2022-09-27 01:23] LABS: Acetone, Serum (Rapid) None Detected (None Detect)
[2022-09-27 01:24] LABS: Glucose 447 mg/dl (74-100)
--- NOTE | 2022-09-27 01:26 | PC.NURSE ---
Dr. Gordon notified of critical blood glucose
[2022-09-27 01:29] LABS: Troponin I < 0.01 ng/ml (0.00-0.034)
[2022-09-27 01:38] LABS: ABG Base Excess -2.2 mmol/L (-2.4-2.3); ABG HCO3 22.4 mmhg (22.0-26.0); ABG Oxygen Saturation 97 % (90-100); ABG PCO2 35.5 mmhg (35.0-45.0); ABG PH 7.42 mmol/L (7.35-7.45); ABG PO2 84.5 mmhg (80-100); ABG TCO2 23.4 mmhg (23-27)
[2022-09-27 01:39] LABS: Allen's Test Acceptable; Oxygen 21 %; Source Left Radial
[2022-09-27 01:45] LABS: Microscopic, Urine URINE MICROSCOPIC (MICROSCOPIC)
[2022-09-27 01:46] LABS: Appearance,Urine CLEAR (Clear); Bilirubin,Urine Negative (Negative); Blood, Urine Negative (Negative); Color,Urine YELLOW (Yellow); Glucose,Urine (UA) 3+ (Negative); Ketones,Urine TRACE (Negative); Leukocyte Esterase,Urine Negative (Negative); Nitrate,Urine Negative (Negative); Protein,Urine Negative (Negative); Urobilinogen,Urine 0.2 EU/dl (0.2)
[2022-09-27 02:07] LABS: Bacteria,Urine Trace /lpf; WBC,Urine Occasional #/hpf (0-3)
[2022-09-27 02:11] LABS: Lymphocytes % 13 % (10-50); Neutrophils % 87 % (42-76); Platelet Estimate Normal; RBC Morphology Normal; Total Cells Counted 100
[2022-09-27 02:11] LABS: POC Glucose,Bedside 284 (70-110)
--- NOTE | 2022-09-27 02:20 | PC.NURSE ---
per place pt on 100% NRB d/t elevated carbon monoxide
--- NOTE | 2022-09-27 02:41 | PC.NURSE ---
pt given warm blanked, recliner taken in for pt . no further requests at this time
[2022-09-27 02:46] LABS: VBG Base Excess -5.5 mmol/L (-2.4-2.3); VBG HCO3 19.7 mmol/L (23-30); VBG Oxygen Saturation 98.2 % (50-70); VBG PCO2 34.7 mmol/L (35-51); VBG PH 7.37 mmol/L (7.31-7.41); VBG PO2 146.9 mmol/L (28-40); VBG Total CO2 20.8 mmol/L (23-27)
--- NOTE | 2022-09-27 04:15 | PC.NURSE ---
Rechecked pt condition. Pt resting with eyes closed. No needs voiced from family. Call light within reach.
[2022-09-27 04:58] LABS: VBG Base Excess -1.8 mmol/L (-2.4-2.3); VBG HCO3 22.8 mmol/L (23-30); VBG Oxygen Saturation 99.2 % (50-70); VBG PCO2 36.8 mmol/L (35-51); VBG PH 7.41 mmol/L (7.31-7.41); VBG PO2 221.5 mmol/L (28-40); VBG Total CO2 23.9 mmol/L (23-27)
[2022-09-27 05:01] LABS: Carboxyhemoglobin 23.4 (0.0-5.0)
[2022-09-27 05:27] LABS: Troponin I < 0.01 ng/ml (0.00-0.034)
[2022-09-27 05:38] LABS: Carboxyhemoglobin 3.6 (0.0-5.0)
== END 2022-09-27 06:18 | disposition home or self-care (01) ==
PROVIDERS: Emergency Provider Emergency Medicine
DX: T58.91XA Toxic effect of carbon monoxide from unspecified source, accidental (unintentional), initial encounter (principal); E11.65 Type 2 diabetes mellitus with hyperglycemia; Z72.0 Tobacco use
CPT/HCPCS: 71046; 80053; 81001; 82009; 82375; 82803; 82962; 83036; 84484; 85007; 85025; 93005; 96365; 96366; 96375; 99285

== ENCOUNTER 2023-10-14 17:45 | Emergency (ER) | payer SELFPAY ==
[2023-10-14 19:00] VITALS: BP 131/77; PULSE 83; RESP 19; TEMP 36.8; O2SAT 95; BMI 24.2
--- NOTE | 2023-10-14 19:20 | EXP.UTC ---
Discharge Plan Disposition Patient Disposition: Home, Self-Care Condition: Good Prescriptions Prescriptions: New clindamycin HCl 300 mg capsule 300 mg PO Q8H 10 Days Qty: 30 0RF No Action metformin 500 mg tablet extended release 24 hr 500 mg PO BID Qty: 60 0RF Referrals Follow up/Referrals: Provider,Referral, MD [Primary Care Provider] - See instructions Activity Restrictions/Add. Instructions Additional Instructions/Restrictions: Take medication as prescribed Call and make appointment with Dentist as soon as possible may take several weeks to get in Over the counter Motrin as directed on package for pain Return if needed Straight to ER if any life threatening symptoms Use dental balls as you was instructed in the [facility] Clinical Impressions Clinical Impression: Dental infection Instructions Patient Instructions: DI for Tooth Abscess, DI for Tooth Decay, Clindamycin Discharge ED Provider: Claudette Rosenberg [facility] [place] General Stated complaint: tooth pain Mode of Arrival: Ambulatory Source of Information: Patient Limitations: No Limitations Time Seen by Provider: 10/14/23 19:20 Description of Symptoms (Recalled from Triage Doc. by RN): Pt stated that 3-4 days ago the left upper front started to hurt. He thinks he has an abcess. HEENT Symptoms (Recalled from RN notes): Yes Resp Symptoms (Recalled from RN notes): No Skin Symptoms (Recalled from RN notes): No MS Symptoms (Recalled from RN notes): No Functional Status (Recalled from RN notes): n/a History of Present Illness Provider Complaint: Patient states that he has several broken decaying teeth on his top left States that he has been having pain in his tooth for several days and today started having some swelling in his gum and left side of face State he thinks he is getting a dental abscess and wanted to get some antibiotics so he can make appointment with dentist to get it worked on Related Data Previous Rx's Medication Instructions Recorded metformin 500 mg tablet,extended 500 mg PO BID #60 tabs 09/27/22 release 24 hr clindamycin HCl 300 mg capsule 300 mg PO Q8H 10 days #30 caps 10/14/23 Allergies Allergy/AdvReac Type Severity Reaction Status Date / Time Penicillins Allergy Verified 10/14/23 19:03 Worker's Comp Is this a Worker's Comp case?: No [facility] Disclaimer: The information contained in this section may have been updated after the patient was seen, as this information can be updated by other users. Social History Smoking Status: Current every day smoker tobacco type: cigarettes packs per day: 1 alcohol intake: never current occupational status: unemployed Travel in the last 8 weeks: None ROS Obtained: Yes All systems reviewed & no additional complaints except as documented and Yes Systems reviewed as appropriate & no additional complaints except as documented Constitutional Constitutional: Reports system reviewed and no additional complaints, except as documented and Reports as per HPI ENT Ears, Nose, Mouth, and Throat: Reports system reviewed and no additional complaints, except as documented, Reports as per HPI and Reports dental pain (pain and swelling in left upper gumline by broken decaying tooth) Cardiovascular Cardiovascular: Reports system reviewed and no additional complaints, except as documented and Reports as per HPI Respiratory Respiratory: Reports system reviewed and no additional complaints, except as documented and Reports as per HPI Gastrointestinal Gastrointestingal: Reports system reviewed and no additional complaints, except as documented and as per HPI Musculoskeletal Musculoskeletal: Reports system reviewed and no additional complaints, except as documented and Reports as per HPI Physical Exam General General appearance: alert and in no apparent distress Expanded ENT Exam Teeth exam: Present dental caries, fractured tooth # and gingival swelling
[2023-10-14 19:40] VITALS: BP 114/80; PULSE 54; RESP 18; TEMP 37.1; O2SAT 99
== END 2023-10-14 19:40 | disposition home or self-care (01) ==
PROVIDERS: Emergency Provider Nurse Practitioner
DX: R22.0 Localized swelling, mass and lump, head (principal); K04.7 Periapical abscess without sinus; F17.210 Nicotine dependence, cigarettes, uncomplicated
CPT/HCPCS: 99204; 99212; G0463

== ENCOUNTER 2024-03-16 09:18 | Emergency (ER) | payer OTHER, SELFPAY ==
[2024-03-16 09:45] VITALS: BP 161/82; PULSE 115; RESP 19; TEMP 36.6; O2SAT 97; BMI 23.4
--- NOTE | 2024-03-16 09:55 | EXP.UTC ---
Discharge Plan Disposition Patient Disposition: Home, Self-Care Condition: Good Prescriptions Prescriptions: New doxycycline hyclate 100 mg capsule 100 mg PO BID Qty: 20 0RF fluticasone propionate [Flonase Allergy Relief] 50 mcg/actuation spray,suspension 2 spray intranasal DAILY Qty: 16 0RF Rx Instructions: administer into each nostril guaifenesin [Mucinex] 600 mg tablet extended release 12hr 1,200 mg PO BID PRN (Reason: cough) Qty: 20 0RF Referrals Follow up/Referrals: Provider,Referral, MD [Primary Care Provider] - See instructions Activity Restrictions/Add. Instructions Additional Instructions/Restrictions: *Monitor Temp, Over the counter Motrin or Tylenol as directed/as needed Tylenol every 4 hours and Motrin every 6 hours (as long as your family doctor has told you that you can take it) for fever or pain. and straight to ER if unable to lower temp less than 101.0 after medication given *Warm salt water gargles may help to soothe the throat *Throat Lozenges? *Warm fluids like tea with honey may help to soothe the throat? *Sleep elevated *Humidifier/Vaporizer *Flonase 2 sprays in each nostril daily but be aware that it may take 2-3 days before you notice improvement Take medication as prescribed Follow up IMMEDIATELY for new or worsening symptoms or no Noticeable improvement over the next 48-72 hours. 911 for difficulty breathing or swallowing You were tested for today for COVID19 your test result should be back in the next few hours, you may check your results on the [facility] Portal Clinical Impressions Clinical Impression: Sinusitis Stand Alone Forms Stand Alone Forms: Work/School Release Instructions Patient Instructions: DI for Sinusitis, Sinusitis Discharge ED Provider: Claudette Rosenberg [facility] [place] HPI General Stated complaint: head congestion Mode of Arrival: Ambulatory Source of Information: Patient Limitations: No Limitations Time Seen by Provider: 03/16/24 09:55 Description of Symptoms (Recalled from Triage Doc. by RN): Pt's symptoms are sinus pressure, body aches, chills, and low grade fever. HEENT Symptoms (Recalled from RN notes): Yes Resp Symptoms (Recalled from RN notes): No Skin Symptoms (Recalled from RN notes): No MS Symptoms (Recalled from RN notes): No Functional Status (Recalled from RN notes): n/a History of Present Illness Provider Complaint: Patient states that he thinks he has a bad sinus infection State since last Wed he has been having sinus pain and pressure, headache, chills and low grade fever and feeling achy State today the pressure behind his eyes and jaws even hurt so he came in to get something to help he has been taking OTC medication but it isnt helping much Related Data Previous Rx's Medication Instructions Recorded doxycycline hyclate 100 mg capsule 100 mg PO BID #20 caps 03/16/24 fluticasone propionate 50 2 spray intranasal DAILY #16 grams 03/16/24 mcg/actuation nasal spray,suspension (Flonase Allergy Relief) guaifenesin 600 mg tablet, 1,200 mg (2 x 600 mg) PO BID PRN 03/16/24 extended release 12 hr (Mucinex) cough #20 tabs Allergies Allergy/AdvReac Type Severity Reaction Status Date / Time Penicillins Allergy Verified 03/16/24 09:55 Worker's Comp Is this a Worker's Comp case?: No [facility] Disclaimer: The information contained in this section may have been updated after the patient was seen, as this information can be updated by other users. Social History Smoking Status: Current every day smoker tobacco type: cigarettes packs per day: 1 alcohol intake: never current occupational status: unemployed Travel in the last 8 weeks: None ROS Obtained: Yes All systems reviewed & no additional complaints except as documented and Yes Systems reviewed as appropriate & no additional complaints except as documented Constitutional Constitutional: Reports system reviewed and no additional complaints, except as documented, Reports as per HPI, Reports body ache, Reports chills, Reports fever(s) and Reports headache(s) ENT Ears, Nose, Mouth, and Throat: Reports system reviewed and no additional complaints, except as documented, Reports as per HPI, Reports headache(s), Reports sinus pain and Reports sinus pressure Cardiovascular Cardiovascular: Reports system reviewed and no additional complaints, except as documented and Reports as per HPI Respiratory Respiratory: Reports system reviewed and no additional complaints, except as documented, Reports as per HPI and Reports cough Gastrointestinal Gastrointestingal: Reports system reviewed and no additional complaints, except as documented and as per HPI Neurologic Neurologic: Reports headache(s) Physical Exam General General appearance: alert and in no apparent distress ENT ENT exam: Present mucous membranes moist Expanded ENT Exam Nose exam: Present sinus tenderness Throat exam: Present other (PND noted) Respiratory Respiratory exam: Present normal lung sounds bilaterally; Absent respiratory distress or wheezes Cardiovascular Cardiovascular exam: Present normal rhythm, tachycardia and normal heart sounds; Absent regular rate Neurological Exam Neurological exam: Present alert, oriented X3 and normal gait Medical Decision Making Rodolfo Inquiry Pt receiving controlled substance: No Rodolfo was queried for this patient: No Vital Signs: 03/16/24 09:45 Temperature 97.8 F Temperature Source Oral Pulse Rate [Right Radial] 115 H Respiratory Rate 19 Blood Pressure [Right Arm] 161/82 H Blood Pressure Mean [Right Arm] 108 Blood Pressure Source [Right Arm] Automatic Cuff Blood Pressure Position [Right Arm] Sitting 02 Sat by Pulse Oximetry 97 Oxygen Delivery Method Room Air
[2024-03-16 10:08] LABS: Coronavirus 19, PCR Not Detected (NotDetected); Influenza A, PCR Not Detected (NotDetected); Influenza B, PCR Not Detected (NotDetected)
[2024-03-16 10:18] VITALS: BP 161/82; PULSE 115; RESP 19; TEMP 36.6; O2SAT 97
--- NOTE | 2024-03-16 18:21 | PC.NURSE ---
Called pt to try and call about result was unable to leave message.
== END 2024-03-16 10:18 | disposition home or self-care (01) ==
PROVIDERS: Emergency Provider Nurse Practitioner
DX: J01.90 Acute sinusitis, unspecified (principal); R51.9 Headache, unspecified; R50.9 Fever, unspecified; R09.81 Nasal congestion; F17.210 Nicotine dependence, cigarettes, uncomplicated
CPT/HCPCS: 87636; 99212; 99214; G0463

== ENCOUNTER 2024-08-17 13:35 | Emergency (ER) | payer OTHER, SELFPAY ==
[2024-08-17 13:49] VITALS: BP 133/77; PULSE 80; RESP 16; TEMP 36.6; O2SAT 98; BMI 25.0
--- NOTE | 2024-08-17 13:53 | XR_ITS ---
FINAL REPORT CLINICAL HISTORY: Acute pain in the bilateral ribs. COMPARISON: September 27, 2022. FINDINGS: Chest: Heart and mediastinum are unremarkable. Lungs are clear. There is no pneumothorax. Ribs: 3 views of the left ribs and 3 views of the right ribs were performed. There is no displaced rib fracture. There is a presumed gallstone in the right upper quadrant. IMPRESSION: No displaced rib fracture. Reviewed, Interpreted and Dictated by Oral Garcia III, MD Transcribed by Belkis Murphy PA-C Authenticated and [facility]
--- NOTE | 2024-08-17 13:53 | ED_ITS ---
Discharge Plan Disposition Patient Disposition: Home, Self-Care Condition: Good Prescriptions Prescriptions: No Action doxycycline hyclate 100 mg capsule 100 mg PO BID Qty: 20 0RF fluticasone propionate [Flonase Allergy Relief] 50 mcg/actuation spray,suspension 2 spray intranasal DAILY Qty: 16 0RF Rx Instructions: administer into each nostril guaifenesin [Mucinex] 600 mg tablet extended release 12hr 1,200 mg PO BID PRN (Reason: cough) Qty: 20 0RF Referrals Follow up/Referrals: Oral José MD [Staff Physician] - 08/24/24 10:30 am Marie Perkins APRN [Nurse Practitioner] - 08/18/24 11:00 am ProviderAnnelise MD [Primary Care Provider] - See instructions Activity Restrictions/Add. Instructions Additional Instructions/Restrictions: You have an appointment with Marie Perkins tomorrow at 11:00 at [facility] Further care per Marie Perkins You have an appointment next week with Dr José make sure to keep both these appointments Clinical Impressions Clinical Impression: Pain Stand Alone Forms Stand Alone Forms: Work/School Release Instructions Patient Instructions: DI for Gallstones Print Language Print Language: Guinean Discharge ED Provider: Claudette Rosenberg [facility] HPI General Stated complaint: chest rib pain Mode of Arrival: Ambulatory Source of Information: Patient Limitations: No Limitations Time Seen by Provider: 08/17/24 13:53 Description of Symptoms (Recalled from Triage Doc. by RN): Patient reports ribs hurting. HEENT Symptoms (Recalled from RN notes): No Resp Symptoms (Recalled from RN notes): No Skin Symptoms (Recalled from RN notes): No MS Symptoms (Recalled from RN notes): Yes Functional Status (Recalled from RN notes): wnl History of Present Illness Provider Complaint: Patient states that at work he does alot of pulling and tugging States for the last couple of weeks he has been having bilateral lower rib pain and soreness, States he doesnt recall doing anything to hurt himself and denies falling but again he does pull and tug at work not sure if he may have pulled something, Denies fever, denies feeling ill Denies chest pain or SOA is an everyday smoker Related Data Previous Rx's ?Medication ?Instructions ?Recorded doxycycline hyclate 100 mg capsule 100 mg PO BID #20 caps 03/16/24 fluticasone propionate 50 2 spray intranasal DAILY #16 grams 03/16/24 mcg/actuation nasal spray,suspension (Flonase Allergy Relief) guaifenesin 600 mg tablet, 1,200 mg (2 x 600 mg) PO BID PRN 03/16/24 extended release 12 hr (Mucinex) cough #20 tabs Allergies Allergy/AdvReac Type Severity Reaction Status Date / Time Penicillins Allergy Verified 03/16/24 09:55 Worker's Comp Is this a Worker's Comp case?: No [facility] Disclaimer: The information contained in this section may have been updated after the patient was seen, as this information can be updated by other users. Social History Smoking Status: Current every day smoker tobacco type: cigarettes packs per day: 1 alcohol intake: never current occupational status: unemployed Travel in the last 8 weeks: None ROS Obtained: Yes All systems reviewed & no additional complaints except as documented and Yes Systems reviewed as appropriate & no additional complaints except as documented Constitutional Constitutional: Reports system reviewed and no additional complaints, except as documented, Reports as per HPI, Denies body ache, Denies chills and Denies fever(s) ENT Ears, Nose, Mouth, and Throat: Reports system reviewed and no additional complaints, except as documented and Reports as per HPI Cardiovascular Cardiovascular: Reports system reviewed and no additional complaints, except as documented, Reports as per HPI, Denies chest pain, Denies dyspnea, Denies dyspnea on exertion and Denies edema Respiratory Respiratory: Reports system reviewed and no additional complaints, except as documented, Reports as per HPI, Denies shortness of breath, Denies chest congestion, Denies cough, Denies dyspnea, Denies dyspnea on exertion and Denies hemoptysis Gastrointestinal Gastrointestingal: Reports system reviewed and no additional complaints, except as documented and as per HPI; Denies abdominal pain, diarrhea, nausea or vomiting Musculoskeletal Musculoskeletal: Reports system reviewed and no additional complaints, except as documented, Reports as per HPI and Reports other Comments: Reports pain in bilateral lower ribs worse with movement or when he pushes/touches the area, no swelling no, bruising denies known injury Physical Exam General General appearance: alert and in no apparent distress ENT ENT exam: Present mucous membranes moist Chest Chest inspection: Present tenderness Expanded Chest Exam Breast: bilateral: tenderness Male Torso: 2 1. reports tenderness/pain with palpation in bilateral lower rib areas, denies known injury, no bruising or swelling noted Respiratory Respiratory exam: Present normal lung sounds bilaterally; Absent respiratory distress or wheezes Cardiovascular Cardiovascular exam: Present regular rate, normal rhythm and normal heart sounds Neurological Exam Neurological exam: Present alert, oriented X3 and normal gait Medical Decision Making Medical Records Screening: Per USPSTF and CDC recommendations, given the prevalence of disease in our region, it is our hospital?s policy to screen for HIV and viral Hepatitis for all patients aged 18 and over and those with ongoing risk factors. Rodolfo Inquiry Pt receiving controlled substance: No Rodolfo was queried for this patient: No Vital Signs: 08/17/24 13:49 Temperature 97.9 F Temperature Source Oral Pulse Rate [Radial] 80 Respiratory Rate 16 Blood Pressure [Right Arm] 133/77 Blood Pressure Mean [Right Arm] 95 Blood Pressure Source [Right Arm] Automatic Cuff Blood Pressure Position [Right Arm] Sitting 02 Sat by Pulse Oximetry 98 Oxygen Delivery Method Room Air Radiology Data #1: Image(s): Chest (with bilateral ribs) Image Reviewed: Yes I have reviewed radiologist's interpretation no displaced rib fracture, there is a presumed gallstone in right upper quad Medical Decision Narrative: Discussed with patient about transfer to the ED for further work up and evaluation and patient declined After xray reading and noted presumed gallstone in right upper quad on reading again discussed with patient about transfer to the ED for further evaluation and ultra sound of gallbladder and he declined states he does not want to go to the ED does not have PCP called and spoke with surgical clinic and patient was given appointment next week but needed to have PCP do Ultrasound of gallbladder and again patient reports does not have PCP and discussed again about transfer to the ED and again he declined, called and spoke with [facility] and discussed patient and was able to get patient an appointment tomorrow at 11am with Marie Perkins and patient is agreeable to plan Patient denies abdominal pain, denies fever,
[2024-08-17 16:15] VITALS: BP 133/77; PULSE 80; RESP 16; TEMP 36.6; O2SAT 98
== END 2024-08-17 16:16 | disposition home or self-care (01) ==
PROVIDERS: Emergency Provider Nurse Practitioner
DX: R07.89 Other chest pain (principal)
CPT/HCPCS: 71111; 99213; G0381

== ENCOUNTER 2024-08-18 12:19 | Outpatient (CLI) | payer OTHER, SELFPAY ==
[2024-08-18 12:59] LABS: Basophils # 0.1 K/mm3 (0-0.2); Eosinophils # 0.1 K/mm3 (0.0-0.4); Eosinophils % 1.3 % (0.1-12.0); Hematocrit 47.1 % (42.0-52.0); Hemoglobin 16.1 g/dL (14.1-18.0); Lymphocytes # 2.5 K/mm3 (0.7-4.5); Lymphocytes % 24.1 % (10-50); Mean Corpuscular HGB Conc 34.2 g/dL (31.8-35.4); Mean Corpuscular Hemoglobin 31.7 pg (27.0-31.2); Mean Corpuscular Volume 92.7 fl (80-94); Mean Platelet Volume 7.4 fl (7.4-10.4); Monocytes # 0.6 K/mm3 (0.1-1.0); Neutrophils # 7.1 K/mm3 (1.8-7.8); Neutrophils % 67.7 % (37.0-80.0); Platelet Count 196 K/mm3 (142-424); Red Blood Count 5.09 M/mm3 (4.60-6.20); Red Cell Distribution Width 13.3 % (11.5-17.5); White Blood Count 10.5 K/mm3 (4.8-10.8)
[2024-08-18 13:12] LABS: Albumin Level 3.8 g/dl (3.5-5.0); Chloride 104 mmol/L (98-107); Potassium 4.2 mmoL/L (3.5-5.1); Sodium 134 mmol/L (136-145)
[2024-08-18 13:15] LABS: Alanine Aminotransferase 24 U/L (12-78); Albumin/Globulin Ratio 1.4 (1.1-1.8); Alkaline Phosphatase 114 U/L (38-126); Amylase 55 U/L (30-110); Anion Gap 10.2 mEq/L (5-15); Aspartate Amino Transferase 23 U/L (17-59); Bilirubin,Total 0.7 mg/dl (0.2-1.3); Blood Urea Nitrogen 17 mg/dl (9-20); Calcium 9.4 mg/dl (8.4-10.2); Carbon Dioxide 24 mmol/L (22.0-30.0); Estimated Glomerular Filt Rate 173 ml/min (>60); GFR (African American) 210 ML/MIN (>60); Globulin 2.8 g/dL (1.3-3.2); Glucose 313 mg/dl (74-100); Lipase 65 U/L (23-300); Total Protein,Serum 6.6 g/dl (6.3-8.2)
[2024-08-18 14:49] LABS: Amphetamine/Metha Screen,Urine Negative ng/ml (<1000)
[2024-08-18 14:50] LABS: Barbiturates Screen,Urine Negative ng/ml (<200); Benzodiazepines Screen,Urine Negative ng/ml (<200)
[2024-08-18 14:51] LABS: Cannabinoid Screen,Urine Negative ng/ml (<50); Cocaine Screen,Urine Negative ng/ml (<300)
[2024-08-18 14:52] LABS: Methadone Screen,Urine Negative ng/ml (<300)
[2024-08-18 14:53] LABS: Opiate Screen,Urine Negative ng/ml (<300); Phencyclidine Screen,Urine Negative ng/ml (<25)
== END 2024-08-18 23:59 | disposition home or self-care (01) ==
LOC: LAB 12:20
PROVIDERS: PCP Nurse Practitioner Family; Visit Provider Nurse Practitioner Family
DX: R10.11 Right upper quadrant pain (principal); K80.20 Calculus of gallbladder without cholecystitis without obstruction
CPT/HCPCS: 36415; 80053; 80307; 82150; 83690; 85025

== ENCOUNTER 2024-08-19 07:44 | Outpatient (CLI) | payer OTHER, SELFPAY ==
--- NOTE | 2024-08-19 07:46 | US_ITS ---
FINAL REPORT CLINICAL HISTORY: RUQ abd pain, gallstone COMPARISON: None FINDINGS: Sonographic images of the right upper quadrant were obtained. The pancreas is partially obscured.The liver has an unremarkable appearance. There is a large gallstone present in the gallbladder, with mild gallbladder wall thickening of 4 mm. There is no evidence of biliary ductal dilatation.The common duct measures 4mm. Limited images of the right kidney are unremarkable. IMPRESSION: Large gallstone present in the gallbladder, with mild gallbladder wall thickening as described, cholecystitis is not excluded. No evidence of biliary ductal dilatation. Reviewed, Interpreted and Dictated by Oral Garcia III, MD Transcribed by Linda Nunez Authenticated and [facility]
== END 2024-08-19 23:59 | disposition home or self-care (01) ==
LOC: RAD 07:46
PROVIDERS: PCP Nurse Practitioner Family; Visit Provider Nurse Practitioner Family
DX: R10.11 Right upper quadrant pain (principal)
CPT/HCPCS: 76705

== ENCOUNTER 2024-09-03 12:55 | Outpatient (CLI) | payer OTHER, SELFPAY ==
--- NOTE | 2024-09-03 12:59 | CT_ITS ---
PROCEDURE INFORMATION: Exam: CT Abdomen With Contrast Exam date and time: 09/03/2024 1:04 PM Age: 54 years old Clinical indication: Abdominal pain; Patient HX: Ruq, epigastric pain TECHNIQUE: Imaging protocol: Computed tomography of the abdomen with contrast. Radiation optimization: All CT scans at this facility use at least one of these dose optimization techniques: automated exposure control; mA and/or kV adjustment per patient size (includes targeted exams where dose is matched to clinical indication); or iterative reconstruction. Contrast material: ISOVUE; Contrast volume: 75 ml; Contrast route: IV; COMPARISON: US GALLBLADDER 08/19/2024 7:56 AM FINDINGS: Liver: Normal. No mass. Gallbladder and biliary ducts: Gallstone in the gallbladder.. Pancreas: Pancreatic atrophy Spleen: Normal. No splenomegaly. Adrenal glands: Normal. No mass. Kidneys: Subcentimeter low attenuation area in the right kidney is too small for characterization. Stomach and bowel: Visualized stomach and bowel are unremarkable. No obstruction. No mucosal thickening. Appendix: Normal appendix Intraperitoneal space: Unremarkable. No free air. No significant fluid collection. Vasculature: Unremarkable. No abdominal aortic aneurysm. Lymph nodes: Unremarkable. No enlarged lymph nodes. Bones/joints: Unremarkable. No acute fracture. No dislocation. Soft tissues: Unremarkable. IMPRESSION: Gallstone in the gallbladder..
--- NOTE | 2024-09-03 12:59 | CT_ITS ---
PROCEDURE INFORMATION: Exam: CT Chest With Contrast; Diagnostic Exam date and time: 09/03/2024 1:04 PM Age: 54 years old Clinical indication: Right-sided; Patient HX: Right sided rib pain TECHNIQUE: Imaging protocol: Diagnostic computed tomography of the chest with contrast. Radiation optimization: All CT scans at this facility use at least one of these dose optimization techniques: automated exposure control; mA and/or kV adjustment per patient size (includes targeted exams where dose is matched to clinical indication); or iterative reconstruction. Contrast material: ISOVUE; Contrast volume: 75 ml; Contrast route: IV; COMPARISON: CT CHEST W CON 09/03/2024 1:04 PM FINDINGS: Lungs: Spiculated nodule in the right lower lobe measures 16.9 x 9.6 mm (series 4, image 40). Pleural spaces: Unremarkable. No pneumothorax. No pleural effusion. Heart: Unremarkable. No cardiomegaly. No pericardial effusion. Lymph nodes: Unremarkable. No enlarged lymph nodes. Vasculature: Unremarkable. No aortic aneurysm. Bones/joints: Unremarkable. No acute fracture. Soft tissues: Unremarkable. IMPRESSION: Spiculated nodule in the right lower lobe measures 16.9 x 9.6 mm (series 4, image 40). Consider non-emergent PET/CT or tissue sampling.(Reference: Elida) References: Elida H, et al. Guidelines for Management of Incidental Pulmonary Nodules Detected on CT Images: From the Fleischner Society 2017. Radiology. 2017;284(1):228-243.
[2024-09-03] MEDS: BARIUM SULFATE(READI-CAT2);450ML BOTTLE 450 ML PO (13:18)
[2024-09-03] MEDS: IOPAMIDOL-370 (76%);100ML BOTTLE 75 ML IV (13:18)
[2024-09-03] MEDS: SODIUM CHLORIDE 0.9% 10ML SYR (RAD ONLY) 10 ML IV (13:18)
== END 2024-09-03 23:59 | disposition home or self-care (01) ==
LOC: RAD 12:56
PROVIDERS: PCP Nurse Practitioner Family; Visit Provider Surgery
DX: R10.11 Right upper quadrant pain (principal); K80.20 Calculus of gallbladder without cholecystitis without obstruction
CPT/HCPCS: 71260; 74160; Q9967

== ENCOUNTER 2025-03-08 13:38 | Emergency (ER) | payer OTHER, SELFPAY ==
--- NOTE | 2025-03-08 13:41 | ED_ITS ---
<Statement entered by Bharati Sifuentes DO - 03/08/25 14:57> I was consulted by the GONZALO, and we discussed the complexity of the problems being addressed. I approved the treatment and management plan for this patient's care in the emergency department, thus performing a substantive portion of the medical decision making. Bharati Sifuentes DO Discharge Plan Disposition Patient Disposition: Home, Self-Care Condition: Good Prescriptions Prescriptions: No Action Jardiance 25 mg tablet 25 mg PO DAILY Qty: 30 2RF (DME) OneTouch Ultra Test Strip See Rx Instructions .Route Qty: 100 3RF Rx Instructions: As directed once daily (DME) blood-glucose meter [OneTouch Ultra2 Meter] Misc See Rx Instructions .Route Qty: 1 0RF Rx Instructions: As directed daily (DME) lancets [OneTouch UltraSoft 2 Lancet] 30 gauge misc See Rx Instructions .Route Qty: 100 3RF Rx Instructions: As directed daily cefdinir 300 mg capsule 300 mg PO BID 10 Days Qty: 20 0RF loratadine 10 mg tablet 10 mg PO DAILY PRN (Reason: allergy symptoms) Qty: 30 0RF meclizine 25 mg tablet 25 mg PO TID PRN (Reason: motion sickness) 30 Days Qty: 90 0RF ondansetron 4 mg tablet,disintegrating 4 mg PO Q8H PRN (Reason: nausea and vomiting) Qty: 30 0RF Referrals Follow up/Referrals: Marie Perkins APRN [Primary Care Provider] - See instructions Activity Restrictions/Add. Instructions Additional Instructions/Restrictions: You have an appointment tomorrow at 10:[address] Gayle of general surgery. Recommend having nothing by midnight just in case he wants to order an additional testing. If you have any continued new or worsening signs or symptoms follow-up with your PCP return to ER as needed. Clinical Impressions Clinical Impression: Cholelithiasis Qualifiers: Cholelithiasis location: gallbladder Cholecystitis presence: without cholecystitis Biliary obstruction: without biliary obstruction Qualified Code(s): K80.20 - Calculus of gallbladder without cholecystitis without obstruction Stand Alone Forms Stand Alone Forms: Work/School Release Instructions Patient Instructions: DI for Gallstones Print Language Print Language: Somali Discharge ED Provider: Taye Walker General Adult HPI General Chief complaint: Abdominal Pain Stated complaint: pain in upper right quad Time Seen by Provider: 03/08/25 13:41 History of Present Illness HPI narrative: Patient presents for evaluation of right upper quadrant pain. Patient gives a history of 6 months of right upper quadrant pain. He was worked up in August and found to have Poornima lithiasis without cholecystitis. Patient reports that at the time he could not take off work therefore he was lost to follow-up. Patient reports however he has daily ongoing right upper quadrant pain is not affected by oral intake. He denies any fever chills hemoptysis hematochezia melena nausea vomiting diarrhea intolerance of oral intake. He does report that his stools have become looser but his frequency has not increased. Related Data Previous Rx's ?Medication ?Instructions ?Recorded ondansetron 4 mg disintegrating 4 mg PO Q8H PRN nausea and 08/18/24 tablet vomiting #30 tabs blood sugar diagnostic (OneTouch #100 ea 08/24/24 Ultra Test strips) blood-glucose meter (OneTouch #1 ea 08/24/24 Ultra2 Meter) empagliflozin 25 mg tablet 25 mg PO DAILY #30 tabs 08/24/24 (Jardiance) lancets 30 gauge (OneTouch #100 ea 08/24/24 UltraSoft 2 Lancet) cefdinir 300 mg capsule 300 mg PO BID 10 days #20 caps 02/09/25 loratadine 10 mg tablet 10 mg PO DAILY PRN allergy 02/09/25 symptoms #30 tabs meclizine 25 mg tablet 25 mg PO TID PRN motion sickness 02/09/25 30 days #90 tabs Allergies Allergy/AdvReac Type Severity Reaction Status Date / Time Penicillins Allergy Verified 02/09/25 10:28 [facility] Disclaimer: The information contained in this section may have been updated after the patient was seen, as this information can be updated by other users. Medical History Dyspnea on exertion Lung nodule Smoking greater than 30 pack years Surgical History No history of previous surgery Family History Other Cancer Diabetes Heart attack Hypertension Social History Smoking Status: Current every day smoker tobacco type: cigarettes packs per day: 1 alcohol intake: never current occupational status: unemployed Travel in the last 8 weeks?: None Other Medical History Have you received the Flu Vaccine for this season: No Have you received the Pneumonia Vaccine: No ROS Obtained: Yes Systems reviewed as appropriate & no additional complaints except as documented Physical Exam General General appearance: alert and in no apparent distress Respiratory Respiratory exam: Present normal lung sounds bilaterally Cardiovascular Cardiovascular exam: Present regular rate Neurological Exam Neurological exam: Present alert and oriented X3 Medical Decision Making Medical Records Medical records reviewed: Yes I reviewed the patient's medical records. Screening: Per USPSTF and CDC recommendations, given the prevalence of disease in our region, it is our hospital?s policy to screen for HIV and viral Hepatitis for all patients aged 18 and over and those with ongoing risk factors. Rodolfo Inquiry Pt receiving controlled substance: No Vital Signs: 03/08/25 13:46 03/08/25 15:00 03/08/25 16:24 Temperature 98.1 F 97.9 F Temperature Source Oral Oral Pulse Rate 74 75 Pulse Rate [Left Radial] 98 H Respiratory Rate 17 16 Blood Pressure 131/79 125/76 Blood Pressure [Right Arm] 114/95 H Blood Pressure Mean [Right Arm] 101 Blood Pressure Source Automatic Cuff Blood Pressure Source [Right Arm] Automatic Cuff Blood Pressure Position Supine Blood Pressure Position [Right Arm] Sitting 02 Sat by Pulse Oximetry 98 99 Oxygen Delivery Method Room Air Room Air Room Air Lab Data Lab results reviewed: Yes I reviewed the patient's lab results. Lab Results 03/08/25 14:09: WBC 7.6, RBC 4.33 L, Hgb 13.4 L, Hct 38.1 L, MCV 88.0, MCH 30.9, MCHC 35.2, RDW 12.3, Plt Count 215, MPV 9.8, Neut % (Auto) 62.6, Lymph % (Auto) 28.3, [place] % (Auto) 6.9, Eos % (Auto) 1.1, Baso % (Auto) 0.7, Neut # (Auto) 4.8, Lymph # (Auto) 2.2, [place] # (Auto) 0.5, Eos # (Auto) 0.1, Baso # (Auto) 0.1, S odium 135 L, Potassium 4.2, Chloride 107, Carbon Dioxide 24, Anion Gap 8.2, BUN 23 H, Creatinine 0.70, Estimated Creat Clear 145, Estimated GFR 118, Est GFR ( Amer) 142, Glucose 291 H, Lactate 1.2, Calcium 9.7, Magnesium 1.6, Total Bilirubin 0.5, AST 23, ALT 26, Alkaline Phosphatase 99, Total Protein 6.3, Albumin 3.5, Globulin 2.8, Albumin/Globulin Ratio 1.3, Lipase 205, Procalcitonin 0.072, HCV Ab YUSRA w/Rflx PCR Qn Negative, HIV Ag/Ab Combo Qual Negative 03/08/25 14:09 03/08/25 14:09 Orders (Tests/Meds): ED MEDICATIONS Discontinued Medications Generic Name Dose Route Start Last Admin Trade Name Freq PRN Reason Stop Dose Admin Iopamidol 75 ml 03/08/25 14:57 03/08/25 14:58 Iopamidol-370 (76%);100ml Bottle IV 03/08/25 14:58 75 ml ONCE ONE Administration Ketorolac Tromethamine 15 mg 03/08/25 13:54 03/08/25 14:34 Ketorolac 30mg/Ml Vial IV 03/08/25 13:55 15 mg ONCE ONE Administration Ondansetron HCl 4 mg 03/08/25 13:54 03/08/25 14:34 Ondansetron 4mg/2ml Vial IV 03/08/25 13:55 4 mg ONCE ONE Administration Sodium Chloride 10 ml 03/08/25 14:57 03/08/25 14:58 Sodium Chloride 0.9% 10ml Syr (Rad Only) IV 03/08/25 14:58 10 ml ONCE ONE Administration ORDERS Category Date Time Status CT abdomen pelvis w con Stat Cat Scan 03/08/25 13:54 Completed CBC w/Auto Diff [Complete Blood Count Auto Diff] Stat Lab 03/08/25 14:09 Completed CMP [Comprehensive Metabolic Panel] Stat Lab 03/08/25 14:09 Completed HIV Combo Stat Lab 03/08/25 14:09 Completed Hepatitis C Ab Qual. W/ RFX Stat Lab 03/08/25 14:09 Completed Lactic Acid Stat Lab 03/08/25 14:09 Completed Lipase Stat Lab 03/08/25 14:09 Completed Magnesium Stat Lab 03/08/25 14:09 Completed Procalcitonin Stat Lab 03/08/25 14:09 Completed Medical Decision Narrative: In summary patient is a 54-year-old male who presents to the emergency department for evaluation of 6 months of right upper quadrant abdominal pain. Patient is hemodynamically stable with blood pressure 114/95 pulse 98 normal sinus rhythm on bedside monitor breathing 70 times a minute satting at 90% on room air upon arrival, afebrile at 90.1. Physical exam reveals a palpable gallbladder in the right upper quadrant is very tender to palpation is the point of maximal tenderness. Positive Hughes sign. The rest of his abdomen is soft nontender no rebound or guarding no rigidity. Bowel sounds normal active.. Differential diagnosis includes cholelithiasis versus cholecystitis +/- obstruction. Initial workup will be conducted with hematologic labs CT scan abdomen pelvis. Initial interventions include Toradol and Zofran for now. Initial workup reviewed by me and his hematologic labs are nonactionable including normal white count negative transaminases. I personally reviewed his previous imaging in comparison to today's and my informal interpretation reveals a very large gallstone at the top of the gallbladder that is in the exact same position as it was in August of last year. There is no gallbladder wall thickening no pericholecystic fluid no biliary ductal dilatation. Remainder of his abdominal exam does not reveal any acute intra-abdominal processes prior to radiology read. Please see final read for formal interpretation.. Upon repeat evaluation patient did report moderate improvement after initial intervention. Given this had interactive discussion with Dr. Gayle of general surgery about patient presentation DELACRUZ and management and Dr. Zhang will see the patient in the office tomorrow for evaluation for cholecystectomy. Patient verbalized understanding and agreement. Patient has any worsening signs or symptoms return to the ER as needed. Critical Care Critical Care Time Critical Care Time: No
[2025-03-08 13:46] VITALS: BP 114/95; PULSE 98; RESP 17; TEMP 36.7; O2SAT 98; BMI 24.0
--- NOTE | 2025-03-08 13:54 | CT_ITS ---
FINAL REPORT TECHNIQUE: After the administration of intravenous contrast, axial images were obtained through the abdomen and pelvis by computed tomography. This study was performed with technique to keep radiation doses as low as reasonably achievable, (ALARA). Individualized dose reduction techniques using automated exposure control or adjustment of the MA and/or KV according to the patient's size were employed. CLINICAL HISTORY: RUQ ABD pain palpable gallbladder FINDINGS: Abdomen: The lung bases are clear. The liver is mildly fatty infiltrated. Gallbladder is contracted and contains a large stone in the fundus measuring 2.5 cm. The spleen is unremarkable. The left adrenal gland is normal. There is a nodule in the right adrenal gland measuring 1.5 cm which is indeterminate, favor adenoma. This is best seen on image 25 of series 3. The pancreas is unremarkable. The kidneys enhance appropriately. The aorta is normal in caliber. There is no free fluid or adenopathy. Pelvis: The appendix is at the upper limits of normal in size with subtle stranding in the periappendiceal fat. This is best seen on images 75-78 of series 3. Air is seen in the remainder of the appendix. The urinary bladder is unremarkable. There is no free fluid or adenopathy. IMPRESSION: Large gallstone. Minimal inflammation adjacent to the appendix of uncertain significance. Recommend correlation with clinical presentation. If there is concern for acute appendicitis, recommend repeat exam in 12-24 hours. Reviewed, Interpreted and Dictated by Chai Darden MD Transcribed by Melissa Strickland Authenticated and [facility]
[2025-03-08 14:25] LABS: Basophils # 0.1 K/mm3 (0-0.2); Basophils % 0.7 % (0.1-2.0); Eosinophils # 0.1 Kmm3 (0.0-0.4); Eosinophils % 1.1 % (0.1-12.0); Hematocrit 38.1 % (42.0-52.0); Hemoglobin 13.4 g/dL (14.1-18.0); Lymphocytes # 2.2 K/mm3 (0.7-4.5); Lymphocytes % 28.3 % (10-50); Mean Corpuscular HGB Conc 35.2 g/dL (31.8-35.4); Mean Corpuscular Hemoglobin 30.9 pg (27.0-31.2); Mean Platelet Volume 9.8 fl (7.4-10.4); Monocytes # 0.5 K/mm3 (0.1-1.0); Monocytes % 6.9 % (1.7-9.3); Neutrophils # 4.8 K/mm3 (1.8-7.8); Neutrophils % 62.6 % (37.0-80.0); Nucleated Red Blood Cells # 0 10^3/uL; Nucleated Red Blood Cells % 0 %; Platelet Count 215 K/mm3 (142-424); Red Blood Count 4.33 M/mm3 (4.60-6.20); Red Cell Distribution Width 12.3 % (11.5-17.5); White Blood Count 7.6 K/mm3 (4.8-10.8)
[2025-03-08] MEDS: KETOROLAC 30MG/ML VIAL 15 MG IV (14:34)
[2025-03-08] MEDS: ONDANSETRON 4MG/2ML VIAL 4 MG IV (14:34)
[2025-03-08 14:38] LABS: Albumin Level 3.5 g/dl (3.5-5.0); Chloride 107 mmol/L (98-107); Potassium 4.2 mmoL/L (3.5-5.1); Sodium 135 mmol/L (136-145)
[2025-03-08 14:41] LABS: Alanine Aminotransferase 26 U/L (12-78); Albumin/Globulin Ratio 1.3 (1.1-1.8); Alkaline Phosphatase 99 U/L (38-126); Anion Gap 8.2 mEq/L (5-15); Aspartate Amino Transferase 23 U/L (17-59); Bilirubin,Total 0.5 mg/dl (0.2-1.3); Blood Urea Nitrogen 23 mg/dl (9-20); Calcium 9.7 mg/dl (8.4-10.2); Carbon Dioxide 24 mmol/L (22.0-30.0); Creatinine Clearance Estimated 145 mL/min (50-200); Estimated Glomerular Filt Rate 118 ml/min (>60); GFR (African American) 142 ML/MIN (>60); Globulin 2.8 g/dL (1.3-3.2); Glucose 291 mg/dl (74-100); Lipase 205 U/L (23-300); Magnesium 1.6 mg/dl (1.6-2.3); Total Protein,Serum 6.3 g/dl (6.3-8.2)
[2025-03-08 14:42] LABS: Lactic Acid 1.2 mmol/L (0.7-2.1)
--- NOTE | 2025-03-08 14:56 | PC.NURSE ---
pt back to room from radiology
[2025-03-08] MEDS: IOPAMIDOL-370 (76%);100ML BOTTLE 75 ML IV (14:58)
[2025-03-08] MEDS: SODIUM CHLORIDE 0.9% 10ML SYR (RAD ONLY) 10 ML IV (14:58)
[2025-03-08 15:00] VITALS: BP 131/79; PULSE 74; O2SAT 99
[2025-03-08 15:05] LABS: Procalcitonin 0.072 ng/mL (0.0-2.0)
[2025-03-08 15:22] LABS: HIV Combo NEGATIVE (Negative)
[2025-03-08 15:31] LABS: Hepatitis C Ab Qual. W/ RFX NEGATIVE (Negative)
[2025-03-08 16:24] VITALS: BP 125/76; PULSE 75; RESP 16; TEMP 36.6; O2SAT 99
== END 2025-03-08 16:27 | disposition home or self-care (01) ==
PROVIDERS: Emergency Medicine; Physician Assistant; Emergency Provider Student in an Organized Health Care Education/Training Program; PCP Nurse Practitioner Family
DX: R10.11 Right upper quadrant pain (principal); K80.20 Calculus of gallbladder without cholecystitis without obstruction; Z11.59 Encounter for screening for other viral diseases; Z11.4 Encounter for screening for human immunodeficiency virus [HIV]
CPT/HCPCS: 74177; 80053; 83605; 83690; 83735; 84145; 85025; 86803; 87389; 96374; 96375; 99285; J1885; J2405; Q9967

== ENCOUNTER 2025-03-09 11:11 | Outpatient (CLI) | payer OTHER, SELFPAY ==
--- NOTE | 2025-03-09 11:27 | ECG_ITS ---
APPROVED REPORT Exam: Resting ECG HR:84 bpm ECG Measurements Heart Rate 84 AXES RI 178 P 60 QRSd 82 QRS 15 QT 343 T 48 QTc 383 Conclusion SINUS RHYTHM NORMAL ECG UNCONFIRMED REPORT Electronically signed by : Noble Chowdhury MD 03/10/2025 11:32:31
== END 2025-03-09 23:59 | disposition home or self-care (01) ==
LOC: RT 11:12
PROVIDERS: PCP Nurse Practitioner Family; Visit Provider Surgery
DX: Z01.818 Encounter for other preprocedural examination (principal); K80.20 Calculus of gallbladder without cholecystitis without obstruction
CPT/HCPCS: 93005

== ENCOUNTER 2025-03-11 06:48 | Day surgery (SDC) | payer OTHER, SELFPAY ==
[2025-03-11] VITALS (10 sets, daily range): BP systolic 131–176; BP diastolic 83–106; PULSE 83–90; RESP 16–19; TEMP 36.2–36.9; O2SAT 96–100; BMI 24.0
[2025-03-11 07:45] LABS: POC Glucose,Bedside 270 (70-110)
[2025-03-11] MEDS: 0.9 % SODIUM CHLORIDE 1000ML 1,000 ML 25 ML IV (07:56)
--- NOTE | 2025-03-11 08:13 | EXP.ANES.CKL ---
[facility] Disclaimer: The information contained in this section may have been updated after the patient was seen, as this information can be updated by other users. Medical History Diabetes mellitus, type 2 Dyspnea on exertion Lung nodule Smoking greater than 30 pack years Surgical History (Updated 03/11/25 @ 07:36 by Josefa Giron, CAROL) Hx of cardiac catheterization No history of previous surgery Family History Other Cancer Diabetes Heart attack Hypertension Social History (Updated 03/11/25 @ 07:36 by Josefa Giron RN) Smoking Status: Current every day smoker tobacco type: cigarettes packs per day: 1 alcohol intake: never substance use type: denies use current occupational status: employed Travel in the last 8 weeks?: None [facility] Anesthesia Checklist Patient Identification Patient Identification: Arm Band and Verbal (Name & ) Structural Data Admitted From: Home Planned Operative Procedure/s: Lap Cholecystectomy, possible lap appendectomy Consent for Planned Operative Procedure(s) Verified: Yes Verified Documents: Surgical Consent NPO Status Verified Time NPO: 00:00 Chart Verification Results Verified: CBC, BMP and ECG Additional verifications Fingerstick Blood Glucose: 270 Anesthesia Reactions: No Hx Blood Transfusions: No Blood Transfusion Reaction: No Airway Assessment Mallampati Score:: Class II C-Spine Mobility Assessed: Yes TMJ Mobility Assessed: No Dentition: Good Dentition (Edentulous on top) Neurological Assessment Level of Consciousness: Awake, Alert and Appropriate Hx Seizures: No Numbness or tingling in extremities: No Anesthesia Plan Anesthesia Risk discussed: Yes Anesthesia Plan: Verified ASA Class: III Anesthesia Type: General
[2025-03-11] MEDS: CLINDAMYCIN PHOSPHATE/D5W 900 MG/50 ML PIGGYBACK 100 MG IV (09:15)
[2025-03-11] MEDS: LIDOCAINE 1% 20ML MDV 20 ML ×2 (09:15→10:01)
--- NOTE | 2025-03-11 10:52 | EXP.OP.NOTE ---
Date of procedure: 03/11/25 Pre-op Diagnosis:: Right upper quadrant pain Cholelithiasis Abnormal CT scan of abdomen/pelvis (mild enlargement of appendix and mild periappendiceal haziness noted per CT scan) Post-op Diagnosis:: Chronic calculus cholecystitis Likely chronic appendicitis Procedure performed:: Laparoscopic cholecystectomy Laparoscopic appendectomy Surgeon:: Sammy Gayle MD SENIOR EMBEDDED SOFTWARE ENGINEER:: Addison Gamino Anesthesia: GETA Estimated blood loss (mL): 15 Clinical Note:: Forwarded from office evaluation: This is a 54-year-old gentleman seen in consultation regarding gallbladder disease after evaluation yesterday in the emergency department. He has a long history of intermittent epigastric/right upper quadrant pain that is just getting worse over the past few weeks . No fevers. No jaundice. CT scan dated March 08, 2025 reviewed. A large gallstone confirmed. Minimal inflammation adjacent to the appendix of undetermined significance noted (note: The patient does not complain of right lower quadrant abdominal pain) Operative findings:: Gallbladder distention Infundibular thickening Appendiceal enlargement and vascular enhancement/induration with wall thickening Operative note:: After informed consent was obtained, the patient was taken to the operating room and placed in the supine position. General anesthesia was induced and the abdomen was prepped and draped in a sterile fashion. After infiltration with local anesthetic an supraumbilical incision was made. A Veress needle was placed in position. The abdomen was insufflated. A 5 mm optical trocar was placed in position. Under direct visualization, a 12 mm trocar was placed in the subxiphoid position and 2 additional 5 mm trocars were placed in the right upper quadrant. The gallbladder was elevated up and over the liver margin. The tissue around the cystic duct was carefully dissected. 3 clips were placed proximally and the duct was transected with harmonic alla. Harmonic alla were then utilized to dissect the gallbladder away from the liver margin with careful attention to the control of the cystic artery. The gallbladder was placed in a retrieval bag and removed through the subxiphoid trocar site. The right upper quadrant was thoroughly irrigated. No active bleeding or bile leak was noted. Attention was then turned to evaluation of the appendix. The appendix was carefully elevated. Enlargement of the appendix with wall thickening noted. Induration/vascular enhancement also noted. The decision was made to proceed with appendectomy. The 5 mm trocar at the supraumbilical site was replaced with a 12 mm trocar. The right upper quadrant 5 mm trocars were removed. One of the 5 mm trocars that was removed from the right upper quadrant was placed in the suprapubic position and the other 5 mm trocars placed in left lower quadrant. The appendix was carefully elevated. The mesoappendix was taken with harmonic alla. An Endopath 45 stapler was utilized to transect the appendix at its base. The appendix was placed in a retrieval bag and removed through the supraumbilical trocar site. The right upper quadrant was thoroughly irrigated. No sign of injury or bleeding noted. Fascia at the subxiphoid trocar site was reapproximated utilizing 0 Ethibond. Fascia at the supraumbilical trocar site was also reapproximated utilizing 0 Ethibond. All remaining trocars were removed. All wounds were irrigated and skin was closed with 4-0 Monocryl in a subcuticular fashion (with the exception of the supraumbilical site which was closed in an interrupted mattress fashion to facilitate hemostasis). Steri-Strips were applied. The patient's anesthetic agents were reversed and extubation was completed prior to transfer to recovery in stable condition. Condition: stable Disposition: PACU Specimens:: Gallbladder and contents Appendix Complications:: No immediate
--- NOTE | 2025-03-11 11:05 | P.PNANES_ITS ---
[facility] Anesthesia Record Part I Anesthesia Record I Intake, IV Amount: 1,300 Hydration: Adequate Estimated blood loss (mL): 10 Urine output (mL): 0 Blood Products used (#): none Blood Pressure: 176/98 SaO2: 97 Pulse Rate: 88 Airway Patency: Patent Respiratory Rate: 16 Temperature: 98.5 F Patient is:: Drowsy and Stable Stable to PACU at:: 10:55
--- NOTE | 2025-03-11 13:17 | P.PNANES_ITS ---
[facility] Anesthesia Record Part II Anesthesia Record Part II Discharge Time: 11:25 Destination: Surgical Day Care (OP Surgery) PACU nurse assessment reviewed?: Yes Patient Condition:: Good Anesthesia Complications:: None Swallowing reflex intact?: Yes Airway Patency: Patent Cyanosis?: No Blood Pressure: 146/86 SaO2: 97 Respiratory Rate: 18 Pulse Rate: 88 Temperature: 97.5 F Mental Status: Alert & Oriented Pain level:: 3 Nausea and/or vomitting:: None Intake, IV Amount: 0 Hydration: Adequate
== END 2025-03-11 12:04 | disposition home or self-care (01) ==
PROVIDERS: PCP Nurse Practitioner Family; Visit Provider Surgery
PROC: 0FT44ZZ Resection of Gallbladder, Percutaneous Endoscopic Approach (ICD-10-PCS; CPT 47562; principal; 2025-03-11 08:20)
DX: K80.10 Calculus of gallbladder with chronic cholecystitis without obstruction (principal); K36 Other appendicitis; R10.11 Right upper quadrant pain; R93.3 Abnormal findings on diagnostic imaging of other parts of digestive tract
CPT/HCPCS: 44970; 47562; 82962; 96374; J3490; J0736; J1100; J1885; J2250; J2405; J3010; J7030; J7120

== ENCOUNTER 2025-03-16 14:20 | Outpatient (CLI) | payer OTHER, SELFPAY ==
[2025-03-16] MEDS: KETOROLAC 30MG/ML VIAL 30 MG (14:30)
[2025-03-16 14:38] VITALS: BP 117/74; PULSE 97; RESP 18; TEMP 36.7; O2SAT 97
== END 2025-03-16 14:39 | disposition home or self-care (01) ==
LOC: INF 14:22
PROVIDERS: PCP Nurse Practitioner Family; Visit Provider Surgery
DX: K80.20 Calculus of gallbladder without cholecystitis without obstruction (principal)
CPT/HCPCS: 96372; J1885

== ENCOUNTER 2025-07-04 16:42 | Outpatient (CLI) | payer OTHER, SELFPAY ==
--- NOTE | 2025-07-04 16:46 | XR_ITS ---
FINAL REPORT CLINICAL HISTORY: right lower rib pain COMPARISON: 08/17/2024 FINDINGS: 4 views of the right ribs were obtained. There is no acute right rib fracture identified. Heart and mediastinum are within normal limits. Lungs are clear. There is no pneumothorax. IMPRESSION: No acute right rib fracture. Reviewed, Interpreted and Dictated by Zoe Jackson MD Transcribed by Melissa Strickland Authenticated and [facility]
[2025-07-04 18:00] LABS: Hemoglobin A1C 10.6 % (4.0-6.0)
[2025-07-04 20:10] LABS: Alanine Aminotransferase 22 U/L (12-78); Albumin Level 3.9 g/dl (3.5-5.0); Albumin/Globulin Ratio 1.7 (1.1-1.8); Alkaline Phosphatase 93 U/L (38-126); Anion Gap 12.8 mEq/L (5-15); Aspartate Amino Transferase 19 U/L (17-59); Bilirubin,Total 0.6 mg/dl (0.2-1.3); Blood Urea Nitrogen 32 mg/dl (9-20); Calcium 9.5 mg/dl (8.4-10.2); Carbon Dioxide 26 mmol/L (22.0-30.0); Chloride 103 mmol/L (98-107); Cholesterol 204 mg/dl (140-200); Creatinine,Serum 1.20 mg/dl (0.66-1.25); Estimated Glomerular Filt Rate 63 ml/min (>60); GFR (African American) 76 ML/MIN (>60); Globulin 2.3 g/dL (1.3-3.2); Glucose 220 mg/dl (74-100); HDL Cholesterol 45 mg/dl (40-60); Magnesium 1.8 mg/dl (1.6-2.3); Potassium 4.8 mmoL/L (3.5-5.1); Sodium 137 mmol/L (136-145); Total Protein,Serum 6.2 g/dl (6.3-8.2); Triglycerides 161 mg/dl (30-150); Uric Acid 4.7 mg/dl (3.5-8.5)
[2025-07-04 20:28] LABS: 25-OH Vitamin D, Total 22.7 ng/mL (30-100)
[2025-07-04 20:40] LABS: Thyroid Stimulating Hormone 0.97 uIU/mL (0.465-4.68)
[2025-07-04 20:59] LABS: Vitamin B12 375 pg/mL (239-931)
[2025-07-06 11:13] LABS: RA Latex Turbid. <10.0 IU/mL (<14.0)
[2025-07-06 18:17] LABS: Antinuclear Antibodies, IFA Negative (.)
== END 2025-07-04 23:59 | disposition home or self-care (01) ==
LOC: LAB 16:43
PROVIDERS: PCP Nurse Practitioner Family; Visit Provider Nurse Practitioner Family
DX: M25.50 Pain in unspecified joint (principal); E11.9 Type 2 diabetes mellitus without complications; R07.81 Pleurodynia
CPT/HCPCS: 36415; 71101; 80053; 80061; 82043; 82306; 82570; 82607; 83036; 83735; 84443; 84550; 85651; 86038; 86431

== ENCOUNTER 2025-07-12 12:56 | Emergency (ER) | payer OTHER, SELFPAY ==
[2025-07-12] VITALS (8 sets, daily range): BP systolic 87–156; BP diastolic 54–89; PULSE 66–107; RESP 13–23; TEMP 36.9–37; O2SAT 96–99; BMI 22.4
--- NOTE | 2025-07-12 13:13 | PC.NURSE ---
while pt was in triage BP 89/43 & 87/54. He reports dizziness, white spots in his vision, flushed/hot, and diaphoretic. FS 260 in triage. Pt is A&Ox4. Pt moved to trauma room 3 and orders placed per protocol. Reports given to Judith MEDINA
--- NOTE | 2025-07-12 13:19 | ECG_ITS ---
APPROVED REPORT Exam: Resting ECG HR:100 bpm ECG Measurements Heart Rate 100 AXES OK 167 P 68 QRSd 86 QRS 54 QT 327 T 76 QTc 384 Conclusion SINUS TACHYCARDIA EARLY REPOLARIZATION [ST ELEVATION WITH NORMALLY INFLECTED T-WAVE] ABNORMAL RHYTHM ECG UNCONFIRMED REPORT Electronically signed by : Jesse Mayfield, 07/14/2025 15:29:03
[2025-07-12 13:24] LABS: Hematocrit 40.1 % (42.0-52.0); Hemoglobin 14.2 g/dL (14.1-18.0); Immature Granulocytes % 0.2 %; Mean Corpuscular HGB Conc 35.4 g/dL (31.8-35.4); Mean Corpuscular Hemoglobin 31.9 pg (27.0-31.2); Mean Corpuscular Volume 90.1 fl (80-94); Nucleated Red Blood Cells % 0 %; Platelet Count 233 K/mm3 (142-424); Red Blood Count 4.45 M/mm3 (4.60-6.20); Red Cell Distribution Width-SD 40.8 fL; White Blood Count 9.9 K/mm3 (4.8-10.8)
--- NOTE | 2025-07-12 13:28 | XR_ITS ---
FINAL REPORT CLINICAL HISTORY: Nonspecific chest pain COMPARISON: 07/04/2025 FINDINGS: The heart size is normal. The mediastinum is normal. There is no focal infiltrate or edema. There are no pleural effusions. There is no pneumothorax. There is no osseous abnormality. IMPRESSION: No acute cardiopulmonary process Reviewed, Interpreted and Dictated by Chai Darden MD Transcribed by Minal Andrade Authenticated and [facility]
[2025-07-12 13:34] LABS: Albumin Level 4.2 g/dl (3.5-5.0); Chloride 108 mmol/L (98-107)
[2025-07-12 13:35] LABS: Potassium 4.6 mmoL/L (3.5-5.1); Sodium 137 mmol/L (136-145)
[2025-07-12 13:37] LABS: Alanine Aminotransferase 24 U/L (12-78); Anion Gap 10.6 mEq/L (5-15); Aspartate Amino Transferase 25 U/L (17-59); Blood Urea Nitrogen 28 mg/dl (9-20); Carbon Dioxide 23 mmol/L (22.0-30.0); Creatinine,Serum 1.10 mg/dl (0.66-1.25); Estimated Glomerular Filt Rate 69 ml/min (>60); GFR (African American) 84 ML/MIN (>60)
[2025-07-12 13:38] LABS: Albumin/Globulin Ratio 1.4 (1.1-1.8); Alkaline Phosphatase 91 U/L (38-126); Bilirubin,Total 0.6 mg/dl (0.2-1.3); Calcium 9.7 mg/dl (8.4-10.2); Globulin 2.9 g/dL (1.3-3.2); Glucose 253 mg/dl (74-100); Magnesium 1.7 mg/dl (1.6-2.3); Total Protein,Serum 7.1 g/dl (6.3-8.2)
[2025-07-12 13:42] LABS: Coronavirus 19, PCR Not Detected (NotDetected); Influenza A, PCR Not Detected (NotDetected); Influenza B, PCR Not Detected (NotDetected)
[2025-07-12] MEDS: ORPHENADRINE CITRATE 60MG/2ML VIAL 30 MG IV (13:44)
[2025-07-12] MEDS: 0.9 % SODIUM CHLORIDE 1000ML 1,000 ML 999 ML IV (13:45)
[2025-07-12] MEDS: KETOROLAC 30MG/ML VIAL 30 MG IV (13:45)
--- NOTE | 2025-07-12 13:46 | ED_ITS ---
<Statement entered by Angelica Mayfield MD - 07/14/25 07:20> I was consulted by the GONZALO, and we discussed the complexity of the problems being addressed. I approved the treatment and management plan for this patient's care in the emergency department, thus performing a substantive portion of the medical decision making. Angelica Mayfield MD, VIKI, FACEP Discharge Plan Disposition Patient Disposition: Home, Self-Care Prescriptions Prescriptions: New methocarbamol 1,000 mg tablet 1,000 mg PO QID 3 Days Qty: 12 0RF No Action Jardiance 25 mg tablet 25 mg PO DAILY Qty: 30 2RF (DME) OneTouch Ultra Test Strip See Rx Instructions .Route Qty: 100 3RF Rx Instructions: As directed once daily (DME) blood-glucose meter [OneTouch Ultra2 Meter] Misc See Rx Instructions .Route Qty: 1 0RF Rx Instructions: As directed daily (DME) lancets [OneTouch UltraSoft 2 Lancet] 30 gauge misc See Rx Instructions .Route Qty: 100 3RF Rx Instructions: As directed daily Januvia 100 mg tablet 100 mg PO DAILY Qty: 30 2RF Referrals Follow up/Referrals: Marie Perkins APRN [Primary Care Provider, Medical] - See instructions Germán Grider MD [Staff Physician, Cardiology] - See instructions Activity Restrictions/Add. Instructions Additional Instructions/Restrictions: Please follow with your primary care physician for further glucose management please also call cardiology for further workup and management of chest pain. Return to ED for any worsening pain or problems Clinical Impressions Clinical Impression: Diabetes mellitus, Rib pain on right side Instructions Patient Instructions: Type 2 Diabetes, DI for Atypical Chest Pain, DI for Hyperglycemia -- Adult Print Language Print Language: Polish Discharge ED Provider: Angelica Mayfield General Adult HPI General Chief complaint: Hyper/Hypoglycemia Stated complaint: Believes sugar is high, dizzy, and flushed Time Seen by Provider: 07/12/25 13:19 Mode of Arrival: Family Vehicle Source of Information: Patient and Medical Record Description of Symptoms (Recalled from ER Triage Doc. by RN): Pt c/o dizziness, headache, white spots with his vision, flushed, elevated blood sugar (280s), and fatigue. States he was at work today when his sxs began after lunch. He does not like taking prescription medications d/t side effects and tries natural remedies 1st typically. He has been dx with DM but is not taken anything for it currently other than natural remedies like tumeric. History of Present Illness HPI narrative: 55-year-old male presents today for complaint of white spots in his vision prior to arrival today. He had this feeling and then he checked his blood sugar and it was 284 then he checked it again and it was 242. He usually has blood sugar that is below 200. This made him feel not right . Patient says that this gave him a lightheaded and dizzy feeling. He denies nausea, vomiting or diarrhea. No abdominal pain. Patient also has pulled a muscle he tells me in his right rib cage. He has pain from the top of his ribs down to the bottom of his ribs. He says that he stopped taking Jardiance because it gives him bad side effects. He says he has been only needing such as turmeric. He feels like this will take care of his diabetes better than the medications will. He says the light hurts his eyes. He does have some glasses with him and is wearing them currently. Related Data Previous Rx's ?Medication ?Instructions ?Recorded blood sugar diagnostic (OneTouch #100 ea 08/24/24 Ultra Test strips) blood-glucose meter (OneTouch #1 ea 08/24/24 Ultra2 Meter) empagliflozin 25 mg tablet 25 mg PO DAILY #30 tabs (Jardiance) lancets 30 gauge (OneTouch #100 ea 08/24/24 UltraSoft 2 Lancet) sitagliptin phosphate 100 mg 100 mg PO DAILY #30 tabs 07/07/25 tablet (Januvia) methocarbamol 1,000 mg tablet 1,000 mg PO QID 72 hours #12 tabs 07/12/25 Allergies Allergy/AdvReac Type Severity Reaction Status Date / Time Penicillins Allergy Mild Hives Verified 07/04/25 16:13 [facility] Disclaimer: The information contained in this section may have been updated after the patient was seen, as this information can be updated by other users. Medical History Diabetes mellitus, type 2 Dyspnea on exertion Lung nodule Smoking greater than 30 pack years Surgical History History of laparoscopic cholecystectomy History of laparoscopic appendectomy Hx of cardiac catheterization No history of previous surgery Family History Other Cancer Diabetes Heart attack Hypertension Social History Smoking Status: Current every day smoker tobacco type: cigarettes packs per day: 1 alcohol intake: never substance use type: denies use current occupational status: employed Travel in the last 8 weeks?: None Have you lived/traveled outside [place] in past 30 days?: No Contact w/someone who lives/traveled outside [place] past 30 days?: No Exposure to someone with infectious disease in past 14 days?: No Do you have a fever (greater than 100.4 F or 38 C)?: No Have you tested positive for COVID-19?: No Exposed to someone with COVID-19 in past 14 days?: No Do you have a sore throat?: No Do you have a cough?: No Do you have any weakness?: No Do you have any diarrhea?: No Are you experiencing any unusual bleeding?: No Do you have any muscle aches/pain?: No Do you have any abdominal pain?: No Are you experiencing loss of taste or smell?: No Other Medical History Have you received the Flu Vaccine for this season: No Have you received the Pneumonia Vaccine: No ROS Obtained: Yes Systems reviewed as appropriate & no additional complaints except as documented Constitutional Constitutional: Reports as per HPI Physical Exam General General appearance: alert and in no apparent distress Head Head exam: atraumatic and normocephalic Eye Eye exam: Present PERRL and EOMI ENT ENT exam: Present normal oropharynx and mucous membranes moist Neck Neck exam: Present full ROM and trachea midline Chest Chest inspection: Present normal inspection Respiratory Respiratory exam: Present normal lung sounds bilaterally Cardiovascular Cardiovascular exam: Present normal rhythm, tachycardia, normal heart sounds, +S1 and +S2 Abdominal Exam Abdominal exam: Present soft and normal bowel sounds Extremities Exam Extremities exam: Present normal inspection, full ROM and normal capillary refill Neurological Exam Neurological exam: Present alert, oriented X3 and normal gait Psychiatric Psychiatric exam: Present normal mood Skin Skin exam: Present warm, dry and intact Medical Decision Making Medical Records Screening: Per USPSTF and CDC recommendations, given the prevalence of disease in our region, it is our hospital?s policy to screen for HIV and viral Hepatitis for all patients aged 18 and over and those with ongoing risk factors. Rodolfo Inquiry Pt receiving controlled substance: No Rodolfo was queried for this patient: No Vital Signs: 07/12/25 12:58 07/12/25 13:30 07/12/25 14:00 Temperature 98.4 F Temperature Source Oral Pulse Rate 97 H 86 Pulse Rate [Right] 107 H Respiratory Rate 19 23 19 Blood Pressure 114/71 110/68 Blood Pressure [Left Arm] 87/54 L Blood Pressure Mean [Left Arm] 65 Blood Pressure Source Blood Pressure Source [Left Arm] Automatic Cuff Blood Pressure Position 02 Sat by Pulse Oximetry 97 96 96 Oxygen Delivery Method Room Air 07/12/25 14:30 07/12/25 15:00 07/12/25 15:30 Temperature Temperature Source Pulse Rate 78 77 79 Pulse Rate [Right] Respiratory Rate 16 16 13 Blood Pressure 129/80 121/67 112/70 Blood Pressure [Left Arm] Blood Pressure Mean [Left Arm] Blood Pressure Source Blood Pressure Source [Left Arm] Blood Pressure Position 02 Sat by Pulse Oximetry 98 98 98 Oxygen Delivery Method 07/12/25 16:01 07/12/25 17:37 Temperature 98.6 F Temperature Source Oral Pulse Rate 66 75 Pulse Rate [Right] Respiratory Rate 17 18 Blood Pressure 156/89 H 147/86 H Blood Pressure [Left Arm] Blood Pressure Mean [Left Arm] Blood Pressure Source Automatic Cuff Blood Pressure Source [Left Arm] Blood Pressure Position Sitting 02 Sat by Pulse Oximetry 99 Oxygen Delivery Method Room Air Lab Data Lab Results 07/12/25 13:14: WBC 9.9, RBC 4.45 L, Hgb 14.2, Hct 40.1 L, MCV 90.1, MCH 31.9 H, MCHC 35.4, RDW 12.4, Plt Count 233, MPV 9.8, Neut % (Auto) 70.2, Lymph % (Auto) 21.7, [place] % (Auto) 7.0, Eos % (Auto) 0.3, Baso % (Auto) 0.6, Neut # (Auto) 7.0, Lymph # (Auto) 2.2, [place] # (Auto) 0.7, Eos # (Auto) 0.0, Baso # (Auto) 0.1, D- Dimer 0.36, Sodium 137, Potassium 4.6, Chloride 108 H, Carbon Dioxide 23, Anion Gap 10.6, BUN 28 H, Creatinine 1.10, Estimated GFR 69, Est GFR ( Amer) 84, Glucose 253 H, Calcium 9.7, Magnesium 1.7 07/12/25 13:14: Magnesium 1.7, Total Bilirubin 0.6, AST 25, ALT 24, Alkaline Phosphatase 91, Troponin I < 0.01 07/12/25 13:14: Troponin I Cancelled, Total Protein 7.1, Albumin 4.2, Globulin 2.9, Albumin/Globulin Ratio 1.4, Acetone Level None detected 07/12/25 13:30: SARS-CoV-2 (PCR) Not detected, Influenza A Untype (PCR) Not detected, Influenza Type B (PCR) Not detected 07/12/25 15:01: Urine Color [place], Urine Appearance Clear, Urine pH 5.5, Ur Specific [place] >= 1.030, Urine Protein 1+ A, Urine Glucose (UA) 1+, Urine Ketones Trace, Urine Blood Negative, Urine Nitrate Negative, Urine Bilirubin 1+ A, Urine Urobilinogen 0.2, Ur Leukocyte Esterase Negative, Urine RBC Occasional, Urine WBC None, Ur Squamous Epith Cells Occasional, Urine Bacteria None 07/12/25 16:20: Troponin I < 0.01 07/12/25 13:14 07/12/25 13:14 Orders (Tests/Meds): ED MEDICATIONS Discontinued Medications Generic Name Dose Route Start Last Admin Trade Name Freq PRN Reason Stop Dose Admin Sodium Chloride 1,000 mls @ 999 mls/hr 07/12/25 13:28 07/12/25 14:46 Sod Chlor 0.9% 1000ml Bag IV 07/12/25 14:28 Infused .Q1H1M ONE Infusion Ketorolac Tromethamine 30 mg 07/12/25 13:29 07/12/25 13:45 Ketorolac 30mg/Ml Vial IV 07/12/25 13:30 30 mg ONCE ONE Administration Orphenadrine Citrate 30 mg 07/12/25 13:29 07/12/25 13:44 Orphenadrine Citrate 60mg/2ml Vial IV 07/12/25 13:30 30 mg ONCE ONE Administration ORDERS Category Date Time Status Chest XR -- portable [XR chest portable] Stat Exams 07/12/25 13:28 Completed Acetone, Serum (Rapid) Stat Lab 07/12/25 13:14 Completed Complete Blood Count Auto Diff Stat Lab 07/12/25 13:14 Completed Comprehensive Metabolic Panel Stat Lab 07/12/25 13:14 Completed D-Dimer Stat Lab 07/12/25 13:14 Completed Magnesium Stat Lab 07/12/25 13:14 Completed Magnesium Stat Lab 07/12/25 13:14 Completed Rapid PCR Covid and Flu A/B Stat Lab 07/12/25 13:30 Completed Troponin I Q3H Lab 07/12/25 13:14 Completed Troponin I Q3H Lab 07/12/25 16:20 Completed Urinalysis and Microscopic Stat Lab 07/12/25 15:01 Completed HEART Score History (anamnesis): Slightly suspicious ECG: Normal Age: 45-65 years Risk factors: No known risk factors Troponin: </= normal limit HEART Score: 1 Medical Decision Narrative: patient is a 55-year-old male presenting to the emergency department for evaluation of right-sided chest pain, muscle pain, elevated blood sugar, lightheaded feeling. Patient is hemodynamically stable and nontoxic-appearing upon arrival, afebrile. Differential diagnosis includes hyperglycemia ACS, electrolyte derangement, other. Workup will be conducted with hematologic labs, specific imaging. Initial inventions include crystalloid bolus, analgesics, antibiotics. Initial workup reviewed by me are nonactionable. Imaging informally interpreted by me and remarkable for nothing acute. Formal imaging read remarkable for nothing acute. We are still waiting for the repeat troponin. Repeat troponin was negative. I discussed with the patient that workup here was negative but I do want him to follow-up with his provider for his elevated glucose and discuss other options for his hyperglycemia. I discussed that I want him following up with cardiology as well. patient is safe for discharge home. I want him to have an echo and stress test and echo. follow-up upon repeat evaluation patient's pain is improved. Critical Care Critical Care Time Critical Care Time: No
[2025-07-12 13:52] LABS: Troponin I < 0.01 ng/ml (0.00-0.034)
[2025-07-12 14:18] LABS: Magnesium 1.7 mg/dl (1.6-2.3)
[2025-07-12 14:23] LABS: D-Dimer 0.36 ug/mL (0.0-0.5)
[2025-07-12 15:05] LABS: Microscopic, Urine URINE MICROSCOPIC (MICROSCOPIC)
[2025-07-12 15:06] LABS: Acetone, Serum (Rapid) None Detected (None Detect)
[2025-07-12 15:15] LABS: Color,Urine ORANGE (Yellow); Glucose,Urine (UA) 1+ (Negative); Ketones,Urine TRACE (Negative); Leukocyte Esterase,Urine Negative (Negative); PH,Urine 5.5 (5.0-8.5); Protein,Urine 1+ (Negative); Specific Gravity, Urine >= 1.030 (1.005-1.030); Urobilinogen,Urine 0.2 EU/dl (0.2)
[2025-07-12 15:28] LABS: Bilirubin,Urine 1+ (Negative)
[2025-07-12 15:33] LABS: RBC,Urine Occasional #/hpf (0-3); Squamous Epithelial Cell,Urine Occasional #/hpf (0-5)
[2025-07-12 17:16] LABS: Troponin I < 0.01 ng/ml (0.00-0.034)
== END 2025-07-12 17:38 | disposition home or self-care (01) ==
PROVIDERS: Nurse Practitioner; Emergency Provider Student in an Organized Health Care Education/Training Program; PCP Nurse Practitioner Family
DX: R07.9 Chest pain, unspecified (principal); R07.81 Pleurodynia; E11.9 Type 2 diabetes mellitus without complications; F17.210 Nicotine dependence, cigarettes, uncomplicated
CPT/HCPCS: 71045; 80053; 81001; 82009; 83735; 84484; 85025; 85378; 87636; 93005; 96361; 96374; 96375; 99285; J1885; J2360; J7030